=== PATIENT | female | born 1945 | race Caucasian/White ===

== ENCOUNTER 2021-04-15 12:44 | Outpatient (REF) | payer MEDICARE, SELFPAY ==
[2021-04-15 14:23] LABS: Hematocrit 38.5 % (37-47); Mean Corpuscular HGB Conc 31.2 g/dl (31.0-35.0); Mean Corpuscular Hemoglobin 28.9 pg (27.0-33.0); Mean Corpuscular Volume 92.8 fL (80-98); Mean Platelet Volume 10.1 fL (9.4-12.3); Platelet Count 240 X10*3/uL (160-400); Red Blood Count 4.15 X10*6/uL (4.20-5.50); Red Cell Distribution Width 13.4 % (11.0-16.0); White Blood Count 8.3 X10*3/uL (4.8-10.8)
[2021-04-15 14:32] LABS: Alanine Aminotransferase 8 U/L (0-31); Albumin Level 4.3 g/dL (3.5-5.0); Alkaline Phosphatase 60 U/L (39-117); Anion Gap 13 (12-20); Aspartate Amino Transferase 15 U/L (5-31); Bilirubin Total 0.4 mg/dL (0.0-1.0); Blood Urea Nitrogen 11 mg/dL (9-16); Calcium 10.1 mg/dL (8.4-10.2); Carbon Dioxide 30 mmol/L (22-29); Chloride 103 mmol/L (96-108); Cholesterol 177 mg/dL; Estimated Glomerular Filt Rate > 60; Glucose Fasting 92 mg/dL (60-99); HDL Cholesterol 55 mg/dL; LDL Cholesterol Calculated 92 mg/dl; Potassium 4.3 mmol/L (3.3-5.1); Sodium 142 mmol/L (135-145); Total Protein 6.5 g/dL (6.5-8.0); Triglycerides 153 mg/dL
== END 2021-04-15 12:45 | disposition home or self-care (01) ==
LOC: HO.HMGCLDS 12:44
PROVIDERS: PCP Internal Medicine; Visit Provider Internal Medicine
DX: Z00.00 Encounter for general adult medical examination without abnormal findings (principal); E78.5 Hyperlipidemia, unspecified; J45.909 Unspecified asthma, uncomplicated
CPT/HCPCS: 36415; 80053; 80061; 85027

== ENCOUNTER → 2021-09-01 14:53 | Outpatient (BNVA) | payer MEDICARE, SELFPAY | PROVIDERS: PCP Internal Medicine; Visit Provider Hospitalist | DX: J44.9 Chronic obstructive pulmonary disease, unspecified (principal); R91.1 Solitary pulmonary nodule; Z85.118 Personal history of other malignant neoplasm of bronchus and lung | CPT/HCPCS: 99202 ==

== ENCOUNTER 2021-09-15 13:04 | Outpatient (REF) | payer MEDICARE, SELFPAY ==
--- NOTE | ~2021-09-15 | CT_ITS ---
EXAMINATION: CT CHEST WITHOUT CONTRAST CLINICAL INFORMATION: Personal history of malignant neoplasm of the lung. COMPARISON: 08/11/2018 TECHNIQUE: Multidetector volumetric CT imaging of the chest was done. Axial MIP volume rendering provided. Sagittal and coronal reformatted images were obtained. This CT examination was performed using dose optimization techniques as appropriate, variously including the following: *Automated exposure control *Adjustment of mA and/or kV according to patient size (this includes techniques or standardized protocols for targeted exams where dose is matched to indication/reason for exam; i.e. extremities or head) *Use of iterative reconstruction technique DLP: 151 mGy-cm FINDINGS: LUNGS: The central airways are patent. Status post partial left upper lobe resection. There is moderate centrilobular emphysema. Area of ill-defined groundglass opacification in the perihilar right upper lobe noted. This is increased in density when compared to previous. This area measures up to 3 cm. Additional nodules are again seen. 1. 0.3 cm pleural-based lateral right apical nodule, series 7 image 160. This is unchanged. 2. Somewhat broad-based anterior pleural plaque in the right upper lobe on series 7 image 240 is unchanged. 3. Anterior pleural-based right upper lobe nodularity near the minor fissure on series 7 image 386 is unchanged. MEDIASTINUM: Normal heart size. Coronary artery calcifications are present. No pericardial effusion. No mediastinal lymphadenopathy. PLEURA: There is no pleural effusion. No pleural mass or thickening. No pneumothorax. AXILLA: No lymphadenopathy. UPPER ABDOMEN: Unremarkable. OSSEOUS STRUCTURES: No acute or suspicious osseous abnormality. Mild degenerative changes of the spine. Spinal stimulator wiring extends to the T10 level. CT/CT chest wo con IMPRESSION: Moderate emphysema. Increasing area of groundglass opacification in the perihilar right upper lobe since 2018. This is increased in prominence and density from then. Further evaluation should be considered. Postsurgical changes of the left lung. Multiple additional pulmonary nodules are unchanged. Fleischner guidelines were followed.
== END 2021-09-15 13:05 | disposition home or self-care (01) ==
LOC: HO.CT 13:04
PROVIDERS: PCP Internal Medicine; Visit Provider Hospitalist
DX: Z85.118 Personal history of other malignant neoplasm of bronchus and lung (principal); R91.1 Solitary pulmonary nodule; J44.9 Chronic obstructive pulmonary disease, unspecified
CPT/HCPCS: 71250

== ENCOUNTER 2021-09-19 15:03 | Outpatient (REF) | payer MEDICARE, SELFPAY ==
--- NOTE | 2021-09-19 17:21 | PFT_ITS ---
FLOWS: FEV1 50% of predicted at 0.92 L. FVC 68% of predicted at 1.68 L. FEV1 to FVC ratio of 0.55. Bronchodilator testing was not performed as patient had DuoNebs approximately 2 hours before testing. LUNG VOLUMES: Total lung capacity 91% of predicted at 4.22 L. Residual volume 108% of predicted at 2.33 L. Slow vital capacity 76% of predicted at 1.89 L. Expiratory reserve volume 95% predicted at 0.46 L. Diffusion capacity is severely decreased, diffusion capacity adjust to being moderately decreased after correction for alveolar ventilation. In comparison to pulmonary function test from March of 2015, FEV1 has decreased by 0.75 L; FVC has decreased by 0.85 L; total lung capacity has decreased by 1.08 L; residual volume has decreased by 0.59 L; slow vital capacity has decreased by 0.71 L; expiratory reserve volume has decreased by 0.55 L; diffusion capacity has decreased by 4.59 mL/minute/mmHg. IMPRESSION: Severe obstructive ventilatory defect. Bronchodilator testing was not performed as patient has had DuoNebs 2 hours prior to the testing. Decreased diffusion capacity suggests emphysema. Antonio Hernandez MD AP/MODL / [id number]
== END 2021-09-19 15:04 | disposition home or self-care (01) ==
LOC: HO.RESP 15:03
PROVIDERS: PCP Internal Medicine; Visit Provider Hospitalist
DX: J44.9 Chronic obstructive pulmonary disease, unspecified (principal); R91.1 Solitary pulmonary nodule; Z85.118 Personal history of other malignant neoplasm of bronchus and lung
CPT/HCPCS: 94010; 94727; 94729

== ENCOUNTER → 2021-10-13 14:57 | Outpatient (BNVA) | payer MEDICARE, SELFPAY | PROVIDERS: PCP Internal Medicine; Visit Provider Hospitalist | DX: J44.9 Chronic obstructive pulmonary disease, unspecified (principal); R91.1 Solitary pulmonary nodule; Z85.118 Personal history of other malignant neoplasm of bronchus and lung | CPT/HCPCS: 99212 ==

== ENCOUNTER 2021-10-28 11:05 | Outpatient (REF) | payer MEDICARE, SELFPAY ==
--- NOTE | ~2021-10-28 | PE_ITS ---
EXAMINATION: Fluorine-18 FDG PET/CT Scan CLINICAL INDICATION: Initial treatment management. Solitary pulmonary nodule, history of lung cancer 2016. PROCEDURE: 67 minutes following the intravenous administration of 14.3 mCi of fluorine 18 FDG, images from the base of the skull to the mid thighs were obtained using a combined PET/CT scanner with CT scan based attenuation correction. No oral contrast was administered. No intravenous contrast was administered. Transverse, coronal, sagittal, and volume reconstruction projections were obtained. The patient's blood glucose as determined by a finger stick, was 90 mg/dl immediately prior to injection. Total CT exam dose-length product 487.05 mGy-cm * These CT images were obtained using dose optimization techniques as appropriate, variously including the following: Automated exposure control * Adjustment of mA and/or kV according to patient size (this includes techniques or standardized protocols for targeted exams where dose is matched to indication/reason for exam; i.e. extremities or head) * Use of iterative reconstruction technique COMPARISON: The prior PET CT scan dated 07/30/2017 performed at [facility] is available for comparison. CT scan of the chest dated 09/15/2021 is also available for comparison. FINDINGS: (Slice numbers described in this report are numbered superiorly to inferiorly with slice #1 in the head) NECK AND VISUALIZED HEAD: No foci of abnormal FDG activity are noted. The distribution of FDG activity is physiological. There is no cervical lymphadenopathy. THORAX: Postsurgical changes from a partial left upper lobectomy are noted. An intensely FDG avid left upper lobe pulmonary nodule present on the prior 07/30/2017 PET/CT scan there is no longer present. There is a groundglass opacity in the right upper lobe that shows very weak FDG activity which is just barely above the background pulmonary activity showing SUVmax 0.6, slice 74/223. On the recent diagnostic CT scan dated 09/15/2021 this poorly marginated groundglass opacity in this measured up to 3 cm, but it appears smaller on the current study, the best delineated region of this measuring now about 1.2 x 0.8 cm, but without sharp margins. Several additional subcentimeter nodules visualized on 09/15/2021 are not as well delineated on these nondiagnostic images. The include a pleural-based 0.3 cm anterolateral right upper lobe nodule, slice 60/223 and a 0.3 cm anterior pleural-based right middle lobe nodule, slice 93/223. Both of these are much too small to be characterized on the FDG PET images. No additional pulmonary nodules are visualized. There are no additional foci of increased FDG activity in the chest. There is no mediastinal, supraclavicular, or axillary lymphadenopathy. There is no pleural or pericardial fluid, or pneumothorax. ABDOMEN AND PELVIS: There are no foci of abnormal FDG activity in the abdomen or pelvis. The liver, gallbladder, spleen comment kidneys, and adrenal glands are unremarkable. The pancreas is mildly atrophic but otherwise unremarkable. There is mild diffuse FDG activity throughout the gastrointestinal tract without a suspicious focal component. There is diverticulosis without evidence of diverticulitis. The hollow viscera are otherwise unremarkable. The pelvic organs are unremarkable. There is no retroperitoneal, mesenteric, pelvic or inguinal lymphadenopathy. MUSCULOSKELETAL: There are no foci of abnormal FDG activity in the osseous structures. Spinal stimulator wiring is visualized extending from the upper lumbar to lower thoracic levels. There is no associated abnormal FDG activity. There are mild degenerative changes in the spine and both hips. There are no suspicious sclerotic or lytic lesions present. VASCULAR: Diffuse vascular calcifications including some coronary calcifications are noted. PET/PET CT fusion skull to thigh IMPRESSION: 1. An ill-defined groundglass opacity in the right upper lobe shows very weak FDG activity. These findings are more suggestive of an inflammatory process than malignancy. Follow-up with diagnostic CT imaging in approximately 3 months to determine progression or resolution of this finding is recommended. 2. Several stable subcentimeter pulmonary ory nodules are not significantly changed from 09/15/2021 and are much too small to be characterized on the FDG PET images. Follow-up of these also with diagnostic CT imaging is recommended. 3. No additional abnormalities suspicious for metastatic or other malignant lesions are noted. 4. Vascular calcifications including some coronary calcifications.
== END 2021-10-28 11:06 | disposition home or self-care (01) ==
LOC: HO.PET 11:05
PROVIDERS: Visit Provider Hospitalist
DX: Z13.89 Encounter for screening for other disorder (principal)

== ENCOUNTER → 2021-12-09 12:52 | Outpatient (BNVA) | payer MEDICARE, SELFPAY | PROVIDERS: PCP Internal Medicine; Visit Provider Hospitalist | DX: J44.9 Chronic obstructive pulmonary disease, unspecified (principal); R91.1 Solitary pulmonary nodule; Z85.118 Personal history of other malignant neoplasm of bronchus and lung | CPT/HCPCS: 99212 ==

== ENCOUNTER 2022-03-27 13:29 | Outpatient (REF) | payer MEDICARE, SELFPAY ==
[2022-03-27 15:55] LABS: Alanine Aminotransferase 10 U/L (0-31); Anion Gap 14 (12-20); Aspartate Amino Transferase 18 U/L (5-31); Blood Urea Nitrogen 11 mg/dL (9-16); Calcium 9.6 mg/dL (8.4-10.2); Carbon Dioxide 29 mmol/L (22-29); Chloride 103 mmol/L (96-108); Cholesterol 189 mg/dL; Estimated Glomerular Filt Rate > 60; Glucose Fasting 90 mg/dL (60-99); HDL Cholesterol 54 mg/dL; LDL Cholesterol Calculated 92 mg/dl; Sodium 142 mmol/L (135-145); Triglycerides 216 mg/dL
[2022-03-27 16:17] LABS: TSH reflex Free T4 0.24 uIU/mL (0.32-4.0); Vitamin D 25-OH Total 51.7 ng/mL (>30)
[2022-03-27 16:53] LABS: Free T4 (Free Thyroxine) 0.82 ng/dL (0.71-1.85)
[2022-03-30 16:21] LABS: Thyroid Peroxidase Antibodies 1 IU/mL (<9)
== END 2022-03-27 13:30 | disposition home or self-care (01) ==
LOC: HO.HMGCLDS 13:29
PROVIDERS: Visit Provider Internal Medicine
DX: E06.3 Autoimmune thyroiditis (principal); E78.5 Hyperlipidemia, unspecified; I10 Essential (primary) hypertension; Z78.0 Asymptomatic menopausal state; M85.80 Other specified disorders of bone density and structure, unspecified site
CPT/HCPCS: 36415; 80048; 80061; 82306; 84439; 84443; 84450; 84460; 86376

== ENCOUNTER 2022-04-27 13:05 | Outpatient (REF) | payer MEDICARE, SELFPAY ==
--- NOTE | ~2022-04-27 | CT_ITS ---
EXAMINATION: CT CHEST WITHOUT CONTRAST CLINICAL INFORMATION: Lung carcinoma 2017. COMPARISON: CT PET 10/28/2021. CT chest 09/15/2021. TECHNIQUE: Multidetector volumetric CT imaging of the chest was done. Axial MIP volume rendering provided. Sagittal and coronal reformatted images were obtained. This CT examination was performed using dose optimization techniques as appropriate, variously including the following: *Automated exposure control *Adjustment of mA and/or kV according to patient size (this includes techniques or standardized protocols for targeted exams where dose is matched to indication/reason for exam; i.e. 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 LUNGS: There is previous left upper lobectomy changes with loss of left lung volume. There is expansion of left lower lobe. No acute pneumonic process seen. There is; however, dependent or compressive atelectasis along the left lower lobe lateral segment. Minimal scarring or atelectasis seen in the lingula. Again visualized is a groundglass attenuation in the right upper lobe measuring 3 cm on axial image 250/7. There is a 3 mm calcification in the left major fissure, stable pleural-based nodularity in the right upper lobe as described previously measuring 3 mm is stable. There is no additional pleural-based nodularity seen. No parenchymal nodules visualized. MEDIASTINUM: Thyroid lobes are symmetric and normal. The central trachea and the bronchi widely patent. The heart size and the great vessels are normal caliber. No abnormal size mediastinal or hilar lymph nodes seen. There are trace coronary artery calcifications present. No pericardial effusion seen. There is mediastinal shift to the left. PLEURA: There is no pleural effusion. No pleural mass or thickening. AXILLA: No lymphadenopathy. UPPER ABDOMEN: Visualized liver, spleen, pancreas and bilateral adrenal glands unremarkable. OSSEOUS STRUCTURES: No lytic or sclerotic process seen. There are electrodes within the posterior epidural space of the spinal canal. CT/CT chest wo con IMPRESSION: 1. Left upper lobectomy changes with minimal atelectatic changes left lower lobe and lingular segments. There is mediastinal shift to the left. 2. Right upper lobe groundglass density stable. 3. Pleural-based nodules are barely visible with no new pleural-based or parenchymal nodules seen at this time. 4. Recommend continued follow-up. Fleischner guidelines were followed.
== END 2022-04-27 13:06 | disposition home or self-care (01) ==
LOC: HO.CT 13:05
PROVIDERS: PCP Internal Medicine; Visit Provider Hospitalist
DX: R91.1 Solitary pulmonary nodule (principal); Z85.118 Personal history of other malignant neoplasm of bronchus and lung
CPT/HCPCS: 71250

== ENCOUNTER → 2022-06-16 13:18 | Outpatient (BNVA) | payer MEDICARE, SELFPAY | PROVIDERS: PCP Internal Medicine; Visit Provider Hospitalist | DX: Z23 Encounter for immunization (principal); J44.9 Chronic obstructive pulmonary disease, unspecified; R91.1 Solitary pulmonary nodule; Z85.118 Personal history of other malignant neoplasm of bronchus and lung | CPT/HCPCS: 90471; 90732; 99212 ==

== ENCOUNTER 2022-12-11 13:06 | Outpatient (REF) | payer MEDICARE, OTHER, SELFPAY ==
--- NOTE | ~2022-12-11 | CT_ITS ---
EXAMINATION: CT CHEST WITHOUT CONTRAST CLINICAL INFORMATION: Solitary pulmonary nodule. COMPARISON: CT chest without contrast 04/27/2022. TECHNIQUE: Multidetector volumetric CT imaging of the chest was done. Axial MIP volume rendering provided. Sagittal and coronal reformatted images were obtained. This CT examination was performed using dose optimization techniques as appropriate, variously including the following: *Automated exposure control *Adjustment of mA and/or kV according to patient size (this includes techniques or standardized protocols for targeted exams where dose is matched to indication/reason for exam; i.e. 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 LUNGS: There are left upper lobectomy changes with loss of left lung volume. Again visualized is patchy ground-glass attenuation right upper lobe measuring at least 3 cm similar to previous study. The rest of the lungs are well-expanded with subpleural atelectatic changes or scarring left lower lobe and right middle lobe. A 3 mm calcification left major fissure is stable. No pulmonary nodule or mass seen. MEDIASTINUM: The thyroid lobes are symmetrical and normal. The central trachea and the bronchi are widely patent. Heart size and the great vessels are normal caliber. No abnormal size mediastinal or hilar lymph nodes seen. There is no pericardial effusion. CORONARY ARTERY CALCIFICATION: Mild coronary artery calcifications are present. PLEURA: There is no pleural effusion. No pleural mass or thickening. AXILLA: No lymphadenopathy. UPPER ABDOMEN: Visualized liver, spleen, pancreas and bilateral adrenal glands are unremarkable. OSSEOUS STRUCTURES: There is exaggerated thoracic kyphosis. No aggressive lytic or sclerotic process seen. There is a lower thoracic epidural neurostimulator. CT/CT chest wo IV con IMPRESSION: 1. Left upper lobectomy changes with loss of left lung volume. 2. Right upper lobe ground-glass attenuation is stable. 3. No new pulmonary nodule or mass seen. 4. No abnormal mediastinal or axillary lymph nodes seen. Fleischner guidelines were followed.
== END 2022-12-11 13:07 | disposition home or self-care (01) ==
LOC: HO.CT 13:06
PROVIDERS: PCP Internal Medicine; Visit Provider Hospitalist
DX: R91.1 Solitary pulmonary nodule (principal)
CPT/HCPCS: 71250

== ENCOUNTER → 2022-12-14 12:51 | Outpatient (BNVA) | payer MEDICARE, SELFPAY | PROVIDERS: PCP Internal Medicine; Visit Provider Hospitalist | DX: J44.9 Chronic obstructive pulmonary disease, unspecified (principal); R91.1 Solitary pulmonary nodule; Z85.118 Personal history of other malignant neoplasm of bronchus and lung | CPT/HCPCS: 99212 ==

== ENCOUNTER 2023-05-13 11:22 | Outpatient (REF) | payer MEDICARE, SELFPAY ==
[2023-05-13 13:13] LABS: MANUAL DIFF FLAG NO
[2023-05-13 13:47] LABS: Basophils Absolute Auto 0.1 X10*3/uL (0.0-0.2); Basophils Percent Auto 0.6 % (0-2); Eosinophils Absolute Auto 0.2 X10*3/uL (0.0-0.4); Eosinophils Percent Auto 1.7 % (0-4); Hematocrit 38.5 % (37.0-47.0); Imm Gran Abs Auto 0.04 X10*3/uL (0.00-0.03); Imm Gran Pct Auto 0.5 % (0.0-0.4); Lymphocytes Absolute Auto 1.9 X10*3/uL (1.2-4.9); Lymphocytes Percent Auto 21.9 % (20-40); Mean Corpuscular HGB Conc 31.2 g/dl (31.0-35.0); Mean Corpuscular Hemoglobin 28.2 pg (27.0-33.0); Mean Corpuscular Volume 90.6 fL (80.0-98.0); Mean Platelet Volume 10.6 fL (9.4-12.3); Monocytes Absolute Auto 0.5 X10*3/uL (0.1-1.2); Monocytes Percent Auto 6.1 % (2-11); Neutrophils Percent Auto 69.2 % (45-73); Platelet Count 272 X10*3/uL (160-400); Red Blood Count 4.25 X10*6/uL (4.20-5.50); Red Cell Distribution Width 14.1 % (11.0-16.0); White Blood Count 8.6 X10*3/uL (4.8-10.8)
[2023-05-13 14:28] LABS: Alanine Aminotransferase 11 U/L (0-31); Albumin Level 4.2 g/dL (3.5-5.0); Alkaline Phosphatase 69 U/L (39-117); Anion Gap 15 (12-20); Aspartate Amino Transferase 16 U/L (5-31); Bilirubin Total 0.3 mg/dL (0.0-1.0); Blood Urea Nitrogen 9 mg/dL (9-16); Carbon Dioxide 28 mmol/L (22-29); Chloride 105 mmol/L (96-108); Cholesterol 157 mg/dL; Estimated Glomerular Filt Rate > 60; Glucose Fasting 105 mg/dL (60-99); HDL Cholesterol 55 mg/dL; LDL Cholesterol Calculated 75 mg/dl; Potassium 4.2 mmol/L (3.3-5.1); Sodium 144 mmol/L (135-145); Total Protein 6.9 g/dL (6.5-8.0); Triglycerides 139 mg/dL
[2023-05-13 14:33] LABS: TSH reflex Free T4 0.53 uIU/mL (0.32-4.0); Vitamin D 25-OH Total 92.4 ng/mL (>30)
== END 2023-05-13 11:23 | disposition home or self-care (01) ==
LOC: HO.HMGCLDS 11:22
PROVIDERS: PCP Internal Medicine; Visit Provider Internal Medicine
DX: D12.6 Benign neoplasm of colon, unspecified (principal); E06.3 Autoimmune thyroiditis; E78.5 Hyperlipidemia, unspecified; F51.04 Psychophysiologic insomnia; M16.0 Bilateral primary osteoarthritis of hip; M79.7 Fibromyalgia; M85.80 Other specified disorders of bone density and structure, unspecified site
CPT/HCPCS: 36415; 80053; 80061; 82306; 84443; 85025

== ENCOUNTER 2023-05-14 11:58 | Outpatient (AMB) | payer MEDICARE, SELFPAY ==
--- NOTE | 2023-05-14 12:15 | A.OFFPC_ITS ---
Vital Signs 05/14/23 12:18 Height 5 ft 1 in Weight 158 lb BMI 29.9 BP 140/80 H Blood Pressure Location Lt brachial Position Sitting Pulse 82 Pulse Source Pulse Oximeter Pulse Oximetry (%) 93 Oxygen Delivery Method Nasal Cannula Intake Visit Reasons: Followup medication Intake Note: Patient here for medication follow up. Allergies aspirin [ASPIRIN] Allergy (Intermediate, Verified 05/14/23 12:38) HEADACHE Neuromuscular Blockers, Steroidal [STEROIDAL NEUROMUSCULAR BLOCKERS] Allergy (Intermediate, Verified 05/14/23 12:38) AGITATION,HEADACHE,GI UPSET ibuprofen [From ADVIL] Adverse Reaction (Intermediate, Verified 05/14/23 12:38) STOMACH UPSET steroids Allergy (Severe, Uncoded 05/14/23 12:38) Aggressive FLONASE Allergy (Intermediate, Uncoded 05/14/23 12:38) intolerance Medication List - Last Reconciled 05/14/23 by Loyda Yuen MD albuterol sulfate 90 mcg/actuation 2 puffs inhalation Q6H PRN alendronate 70 mg PO QWEEK ascorbate calcium (vitamin C) 500 mg PO DAILY carisoprodol 350 mg PO TID PRN cholecalciferol (vitamin D3) 50 mcg PO DAILY coenzyme Q10 (CoQ-10) 100 mg PO DAILY gabapentin 0 mg PO hydrocodone-acetaminophen 7.5-325 mg 1 tab PO QID PRN ipratropium-albuterol 0.5 mg-3 mg(2.5 mg base)/3 mL 3 mL inhalation Q6H PRN 30 days nebulizers As directed Oxygen Home Use As directed pravastatin 80 mg PO DAILY trazodone 450 mg (3 x 150 mg) PO BEDTIME Tobacco use date assessed: 05/14/23 Fall risk assessment: No Falls in past year Last assessed Fall Risk: 05/14/23 Dental Screening Dental Screen Date: 05/14/23 Did you have a dental visit in the last 12 months?: No Did you have a dental problem in the last 6 months where you did not have access to dental care?: No Was dental information given to patient?: Patient declined HPI Followup medication HPI Details 77 year-old lady with history of lung cancer, , COPD followed by Pulmonary, has dyslipidemia, and 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 She had recent fasting labs done which showed lipids within normal limits, slightly elevated fasting glucose and TSH within normal limits. She has been feeling well, no new complaints at present time. [facility] Medical History (Updated 05/14/23 @ 12:57 by Loyda Yuen MD) Chronic insomnia COPD (chronic obstructive pulmonary disease) Fibromyalgia Karlie's thyroiditis History of lung cancer (~2016) Hyperlipidemia Impaired fasting glucose Osteoarthritis of both hips Osteopenia Personal history of nicotine dependence Pulmonary nodule Tubular adenoma of colon Surgical History History of back surgery (~2002) History of colonoscopy (~02/2014) History of left knee surgery History of lung surgery (~09/2017) Family History Father Bone cancer Mother AAA (abdominal aortic aneurysm) Daughter No problems noted. Son No problems noted. Social History Patient Tobacco Use Status: Former Tobacco user Tobacco use type: Cigarette Cigarette Packs Per Day: 1 Cigarettes Per Day: 20 Years Smoked: 20 e-Cigarette/Vaping Use: Never Used Second Hand Smoke Exposure: No Cognitive needs: No Hearing needs: No Vision needs: No Questionnaire Thrive Questionnaire Date Thrive assessed: 04/18/21 FELY-7 AMB Questionnaire FELY-7 Date FELY - 7 assessed: 03/27/22 Source: Developed by Drs. Steve Garcia, Donna Jacobs, Sulaiman Reynolds and colleagues, with an educational kostas from [employer]. Review of Systems Const Denies fatigue, Denies frequent falls, Denies headache(s), Denies night sweats and Denies weight loss ENT Denies dizziness and Denies headache(s) Card Denies chest pain and Reports dyspnea on exertion Resp Denies chest congestion, Reports dyspnea on exertion and Denies wheezing GI Reports no additional complaints Reports no additional complaints Musc Denies no additional complaints, Denies abnormal gait and Denies tingling Neuro Denies abnormal gait, Denies behavioral changes, Denies dizziness, Denies frequent falls, Denies headache(s), Denies restless legs, Denies Sensory deficit (Neuro) and Denies tingling Psych Denies no additional complaints and Denies behavioral changes Endo Denies fatigue Chris/Lymph Denies easy bleeding and Denies lymphadenopathy Aller/Immun Denies wheezing Physical exam (Primary Care) Vital Signs: Last Vital Signs Pulse 82 05/14/23 12:18 BP 140/80 H 05/14/23 12:18 Pulse Ox 93 05/14/23 12:18 Oxygen Delivery Method Nasal Cannula 05/14/23 12:18 BMI result Body Mass Index 29.9 Tobacco/Smoking Status: Tobacco use Status Tobacco use date assessed 05/14/23 05/14/23 12:23 Patient Tobacco Use Status Former Tobacco user 05/14/23 12:18 Tobacco use type Cigarette 05/14/23 12:18 e-Cigarette/Vaping Use Never Used 05/14/23 12:18 Thrive Assessment: Date of Thrive Assessment Date Thrive assessed 04/18/21 05/14/23 12:18 Const Orientation/consciousness: patient oriented x3 Eyes General: appearance normal, both eyes and all related structures Neck Other: Thyroid gland nonpalpable Neck: Yes full ROM, Yes no lymphadenopathy and Yes supple Resp Effort & Inspection: normal respiratory effort and able to speak in complete sentences Auscultation: diminished lung sounds Cardio Rate: regular rate Rhythm: regular rhythm Heart sounds: S1 normal heart sound present and S2 normal heart sound present GI Palpation (GI): Soft to palpation, nontender, no guarding and no masses Auscultation: normal bowel sounds Skin Lesions: no lesions Rashes: no rashes Neuro General: patient oriented x3, moves all extremities and no focal motor deficits Cranial nerves: Yes CN's II-XII intact bilaterally Sensory Exam: No Sensory deficit (Neuro) Extrem General: Yes full ROM, Yes no joint enlargement, Yes no pedal edema and Yes no calf tenderness Results Reviewed Results Reviewed: SPEC : [id number] RUTHANN: 05/13/23 STATUS: COMP REQ : [id number] RECD: 05/13/[address]: Loyda Yuen MD COMP: 05/13/23 ENTERED: 05/13/[address] [facility] [address]: ORDERED: CBC Auto Diff Test Result Flag Reference Site WBC 8.6 4.8-10.8 X10*3/uL RBC 4.25 4.20-5.50 X10*6/uL HGB 12.0 12.0-16.0 g/dl HCT 38.5 37.0-47.0 % MCV 90.6 80.0-98.0 fL MCH 28.2 27.0-33.0 pg MCHC 31.2 31.0-35.0 g/dl RDW 14.1 11.0-16.0 % PLT 272 160-400 X10*3/uL MPV 10.6 9.4-12.3 fL Neut Pct Auto 69.2 45-73 % ImGran Pct Auto 0.5 H 0.0-0.4 % Lymp Pct Auto 21.9 20-40 % Hardee Pct Auto 6.1 2-11 % Eos Pct Auto 1.7 0-4 % Baso Pct Auto 0.6 0-2 % NRBC Pct Auto 0.0 0.0-0.2 /100WBC ANC Neut Abs # 6.0 2.0-8.3 x10*3/uL ImGran Abs Auto 0.04 H 0.00-0.03 X10*3/uL Lymph Abs Auto 1.9 1.2-4.9 X10*3/uL Hardee Abs Auto 0.5 0.1-1.2 X10*3/uL Eos Abs Auto 0.2 0.0-0.4 X10*3/uL Baso Abs Auto 0.1 0.0-0.2 X10*3/uL NRBC Abs Auto 0.000 0.0-0.012 X10*3/uL RUN: 05/14/23 1237 PAGE 1 [facility] [address] [place] [id number] Police Worker: Leo Appiah M.D. Specimen Inquiry Name: Nancy Light Age/Sex: 77/F : 1945 Unit#: [id number] Attend Dr: Loyda Yuen MD Re05/13/23 Status: DEP REF Location: [facility] Disch: N SPEC : [id number] RUTHANN: 05/13/23 STATUS: COMP REQ : [id number] RECD: 05/13/23-[address]: Loyda Yuen MD COMP: 05/13/23-1433 ENTERED: 05/13/[address] [facility] [address]: ORDERED: CMP Fast, Lipid Panel, Vitamin D 25-OH, TSH Rflx Test Result Flag Reference Site Sodium 144 135-145 mmol/L Potassium 4.2 3.3-5.1 mmol/L CL 105 96-108 mmol/L CO2 28 22-29 mmol/L Gap 15 12-20 BUN 9 9-16 mg/dL Creat 0.72 0.5-1.4 mg/dL EGFR > 60 NOTE: For -Serbian individuals, multiply the result by 1.210. Chronic Kidney Disease: Estimated GFR < 60 mL/min/1.73m2 Severe Kidney Disease: Estimated GFR < 15 mL/min/1.73m2 FBS 105 H 60-99 mg/dL A fasting glucose from 100-125 mg/dl is considered impaired (pre-diabetes). CA 10.0 8.4-10.2 mg/dL Total Bili 0.3 0.0-1.0 mg/dL AST (GOT) 16 5-31 U/L ALT (GPT) 11 0-31 U/L Protein, Total 6.9 6.5-8.0 g/dL Alb 4.2 3.5-5.0 g/dL Triglyceride 139 mg/dL Desirable Triglyceride: less than 150 mg/dL Borderline High Triglyceride 150-199 mg/dL High Triglyceride: 200-499 mg/dL Very High Triglyceride: greater than or equal to 5OO mg/dL Chol 157 mg/dL Desirable Cholesterol: less than 200 mg/dL Borderline High Cholesterol: 200-239 mg/dL High Cholesterol: greater than 239 mg/dL LDL Calculated 75 mg/dl Desirable LDL: less than 100 mg/dL Near Optimal/Above Optimal LDL: 110-129 mg/dL Borderline High LDL: 130-159 mg/dL High LDL: 160-189 mg/dL Very High LDL: greater than or equal to 190 mg/dL HDL 55 mg/dL Desirable HDL: greater than 40 mg/dL Note: This HDL assay may give artificially low results in patients with liver disease. Alk Phos 69 39-117 U/L Vit D 25-OH Tot 92.4 >30 ng/mL Health Based Reference Values* < 20 ng/mL Deficient 20-30 ng/mL Insufficient > 30 ng/mL Sufficient *Mert DIAZ. N Engl J Med. 2007;357:266-280 Care must be taken in interpreting Vitamin D results from different laboratories and methodologies. Published data demonstrated that results from patients undergoing hemodialysis may show a negative bias when tested with various automated 25-OH vitamin D assays when compared to LC-MS/MS. When testing samples from patients whose predominant form of Vitamin D is Vitamin D2, such as patients receiving Vitamin D2 supplementation, results that are subtherapeutic should be confirmed with another method such as LC-MS/MS. TSH 0.53 0.32-4.0 uIU/mL Assessment and Plan Assessment & Plan (1) Hyperlipidemia: Code(s): E78.5 - Hyperlipidemia, unspecified Plan: Reviewed recent fasting lipid profile with patient with levels within normal limits . Continue with pravastatin 80 mg at bedtime , in addition to adherence to low-cholesterol diet and regular exercise, at least 30 minutes 3 to 4 times a week. Advised patient to make healthy food choices, eat more fruits, vegetables, whole grains, wild caught fish and low-fat dairy. Limit amount of meat and fried or fatty food products, as well as processed foods and fast foods. Follow-up scheduled with repeat fasting lipid panel in months. 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 Stone Code(s): E06.3 - Autoimmune thyroiditis Plan: Thyroid levels within normal limits, currently asymptomatic. Will monitor (3) Osteopenia: Code(s): M85.80 - Other specified disorders of bone density and structure, unspecified site Plan: Continue with alendronate and cholecalciferol 50 mcg once a day Orders: Orders Alanine Aminotransferase 09/10/23 E06.3 - Autoimmune thyroiditis, E78.5 - Hyperlipidemia, unspecified, M85.80 - Other specified disorders of bone density and structure, unspecified site, R73.01 - Impaired fasting glucose Aspartate Amino Transferase 09/10/23 E06.3 - Autoimmune thyroiditis, E78.5 - Hyperlipidemia, unspecified, M85.80 - Other specified disorders of bone density and structure, unspecified site, R73.01 - Impaired fasting glucose Basic Metabolic Panel Fasting 09/10/23 E06.3 - Autoimmune thyroiditis, E78.5 - Hyperlipidemia, unspecified, M85.80 - Other specified disorders of bone density and structure, unspecified site, R73.01 - Impaired fasting glucose Lipid Panel 09/10/23 E06.3 - Autoimmune thyroiditis, E78.5 - Hyperlipidemia, unspecified, M85.80 - Other specified disorders of bone density and structure, unspecified site, R73.01 - Impaired fasting glucose Vitamin D 25-OH Total 09/10/23 E06.3 - Autoimmune thyroiditis, E78.5 - Hyperlipidemia, unspecified, M85.80 - Other specified disorders of bone density and structure, unspecified site, R73.01 - Impaired fasting glucose Free T4 (Free Thyroxine) 09/10/23 E03.9 - Hypothyroidism, unspecified, E06.3 - Autoimmune thyroiditis, E78.5 - Hyperlipidemia, unspecified, M85.80 - Other specified disorders of bone density and structure, unspecified site, R73.01 - Impaired fasting glucose Thyroid Stimulating Hormone 09/10/23 E06.3 - Autoimmune thyroiditis, E78.5 - Hyperlipidemia, unspecified, M85.80 - Other specified disorders of bone density and structure, unspecified site, R73.01 - Impaired fasting glucose Coding Level of Care Code Est Pt Level 3 (65556) Diagnoses Hyperlipidemia E78.5 Karlie's thyroiditis E06.3 Osteopenia M85.80
[2023-05-14 12:18] VITALS: BP 140/80; PULSE 82; O2SAT 93; BMI 29.9
== END 2023-05-14 13:42 | disposition home or self-care (01) ==
PROVIDERS: PCP Internal Medicine; Visit Provider Internal Medicine
DX: E78.5 Hyperlipidemia, unspecified (principal); E06.3 Autoimmune thyroiditis; M85.80 Other specified disorders of bone density and structure, unspecified site
CPT/HCPCS: 99213

== ENCOUNTER 2023-06-17 13:39 | Outpatient (AMB) | payer MEDICARE, SELFPAY ==
[2023-06-17 13:51] VITALS: PULSE 82; O2SAT 93; BMI 29.3
--- NOTE | 2023-06-17 13:51 | MHC.OFFVIS ---
Intake Vital Signs 06/17/23 13:51 Height 5 ft 1 in Weight 155 lb BMI 29.3 Pulse 82 Pulse Source Pulse Oximeter Pulse Oximetry (%) 93 Oxygen Delivery Method Room Air Comment 2 Liters Pulse([employer]) Intake Visit Reasons: copd Certified Nurse Operating Room Required: No Allergies aspirin [ASPIRIN] Allergy (Intermediate, Verified 06/17/23 13:52) HEADACHE Neuromuscular Blockers, Steroidal [STEROIDAL NEUROMUSCULAR BLOCKERS] Allergy (Intermediate, Verified 06/17/23 13:52) AGITATION,HEADACHE,GI UPSET ibuprofen [From ADVIL] Adverse Reaction (Intermediate, Verified 06/17/23 13:52) STOMACH UPSET steroids Allergy (Severe, Uncoded 06/17/23 13:52) Aggressive FLONASE Allergy (Intermediate, Uncoded 06/17/23 13:52) intolerance HPI HPI Comments History of Present Illness Details The patient is a 78-year-old woman with a known history of tobacco dependency in the past, COPD and history of lung cancer. She is status post lobectomy several years back with curative intent. Subsequently after that she did follow-up with Oncology. She did have a CT scan of the chest back in 2018 demonstrating stable postsurgical changes on the left-hand side. The patient did have a couple pulmonary nodules. The patient has had a CT scan since then. In addition to that she does have dyspnea on exertion. The patient does use oxygen supplementation usually between 2.5-3 L. She does respond better to the continues oxygen. Recently the family about a portable oxygen concentrator that can provide continuously to flow. Although the battery only lasts about an hour. The patient has not had any pulmonary function studies in a couple years. In regards of her respiratory medications they have been very expensive for her. She typically uses a DuoNeb between 2 to 3 times a day with good effect. At this point I believe this is enough. She does not have any significant wheezing or chest congestion to suggest the need for inhaled cortical steroid therapy at this time. 10/13/2021 the patient is here for pulmonary follow-up visit. Overall the patient has been doing well. She continues using her oxygen with good effect. In addition to that she has continued her respiratory therapy. She did undergo a repeat CT scan of the chest that we personally reviewed together. We were able to compared to the CT scan that she had from 2018. It appears that she has a ground-glass nodular density which is demonstrating interval worsening size when compared to 2018. with a history of lung cancer will be reasonable to further address this nodular density with a PET scan. In addition to that the patient did undergo pulmonary function studies which we personally reviewed demonstrating moderate to severe COPD. The patient does have a severe diffusion impairment which correlates with her oxygen requirements. Based on her decreased DLCO the patient may not be a surgical candidate. We consider bronchoscopy to address this parenchymal abnormality is found to be abnormal on the PET scan. 12/09/2021 the patient is here for a pulmonary follow-up visit. Overall the patient has been doing well. She does continue to have dyspnea on exertion. [id number] severity. The oxygen has been helpful. She cannot afford inhalers per se. However, the nebulizer therapy has been very effective in beneficial. Currently she is on DuoNeb. Will consider budesonide in the future. Right now she is not having any significant productive cough or wheezing so we can hold off on the steroid component. In the meantime we did review her recent PET scan which demonstrated no significant FDG activity in the larger right-sided subsolid nodular density. She does have a history of cancer. Although the PET scan is reassuring she does need to have follow-up CT scan in 6 months. Otherwise patient is without any other complaints. I did encourage her to start pulmonary rehab online. I did give her information in order to do so. Will follow-up in 6 months or sooner if any new issues arise. 06/16/2022 the patient is here for a pulmonary follow-up visit. Overall she is doing well she continues use her nebulized therapy. This has been effective. She does not have any inhalers specially because they have been very expensive for her. We did talk about different alternatives including using a repeat card and also trying generic inhalers that now are available which be lower in [place]. I do believe that she will need at least a rescue inhaler to have with her when she leaves her home. Also, we can consider maintenance inhalers in the near future. We did discuss her last CT scan of the chest done in April 2022 demonstrating stable pulmonary nodules and postsurgical changes after having her lung cancer resected. Will plan to repeat the CT scan 6 months from now which be [address] scan to make sure that those nodular densities are not worse. She continues use oxygen continue sleep. When she is at home with the long cord she sometimes increases it to 3 L because she feels is not enough. 12/14/2022 the patient is here for pulmonary follow-up visit. Overall she is doing well. She is using the nebulized therapy. She is able to expectorate well in the morning. She does feel some heaviness specially when she walks. She does use the oxygen with good effect. She is using conserving device. The patient overall is doing well with the nebulized therapy. She did have a recent CT scan of the chest were personally reviewed and compared to her last CT scan from April 2022. The CT chest has not been officially read, but no significant changes on the GG nodular density. Will plan to repeat CT chest in 1 year if no other findings on her official CT chest read. 06/17/2023 the patient is here for pulmonary follow-up visit. Overall the patient is doing fairly well. She is using her respiratory medication. She is also using her oxygen. Her oxygen requirements have not changed. She also did get the Acapella valve. I did recommend she use it twice a day as good exercise physiology and good mucus clearance. She does not have any significant mucus at this time however. Her last CT scan was back in December 2022. The patient did have a nodular density. She has a history of lung cancer. She will return in 6 months to follow up her repeat CT scan in December 2023. If she has any issues prior to that she is to call the office for an earlier assessment. the patient is wondering about Trelegy inhaler. We did talk about the inhalers and potential cost. She will think about it. In the meantime I will send a prescription if so if she decides to use it she can started once daily. [facility] Medical History (Updated 05/14/23 @ 12:57 by Loyda Yuen MD) Impaired fasting glucose Osteopenia Personal history of nicotine dependence Pulmonary nodule History of lung cancer (~2016) Osteoarthritis of both hips Tubular adenoma of colon Fibromyalgia Chronic insomnia Karlie's thyroiditis COPD (chronic obstructive pulmonary disease) Hyperlipidemia Surgical History History of back surgery (~2002) History of colonoscopy (~02/2014) History of left knee surgery History of lung surgery (~09/2017) Family History Father Bone cancer Mother AAA (abdominal aortic aneurysm) Daughter No problems noted. Son No problems noted. Social History Patient Tobacco Use Status: Former Tobacco user Tobacco use type: Cigarette Cigarette Packs Per Day: 1 Cigarettes Per Day: 20 Years Smoked: 20 e-Cigarette/Vaping Use: Never Used Second Hand Smoke Exposure: No Cognitive needs: No Hearing needs: No Vision needs: No Review of Systems Const Denies fatigue, Denies frequent falls, Denies headache(s), Denies night sweats and Denies weight loss ENT Denies dizziness and Denies headache(s) Card Denies chest pain and Reports dyspnea on exertion Resp Denies chest congestion, Reports dyspnea on exertion and Denies wheezing GI Reports no additional complaints Reports no additional complaints Musc Denies no additional complaints, Denies abnormal gait and Denies tingling Neuro Denies abnormal gait, Denies behavioral changes, Denies dizziness, Denies frequent falls, Denies headache(s), Denies restless legs, Denies Sensory deficit (Neuro) and Denies tingling Psych Denies no additional complaints and Denies behavioral changes Endo Denies fatigue Chris/Lymph Denies easy bleeding and Denies lymphadenopathy Aller/Immun Denies wheezing Physical Exam Vital Signs: Last Vital Signs Pulse 82 06/17/23 13:51 Pulse Ox 93 06/17/23 13:51 Oxygen Delivery Method Room Air 06/17/23 13:51 BMI result Body Mass Index 29.3 Const General: alert Neck Neck: Yes normal visual inspection, Yes full ROM and Yes no lymphadenopathy Chest Chest palpation & inspection: normal inspection of the chest Resp Auscultation: diminished lung sounds Cardio Rate: regular rate Rhythm: regular rhythm Heart sounds: S1 normal heart sound present and S2 normal heart sound present GI Palpation (GI): Soft to palpation and nontender Auscultation: normal bowel sounds Skin General skin exam: rashes and/or lesions noted Neuro Sensory Exam: No Sensory deficit (Neuro) Assessment & Plan Assessment & Plan (1) COPD (chronic obstructive pulmonary disease): Comment: Severe Code(s): J44.9 - Chronic obstructive pulmonary disease, unspecified (2) History of lung cancer: Onset Date: ~2016 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) Code(s): Z85.118 - Personal history of other malignant neoplasm of bronchus and lung (3) Pulmonary nodule: Code(s): R91.1 - Solitary pulmonary nodule Plan Continue DuoNeb therapy 3 times a day STACIA as needed continue oxygen supplementation 2.5-[address] scan of the chest in 12/2023 consider pulmonary rehabilitation on line Request CPT for acapella valve follow-up in 6 months Medications: New RSV vac, preF A and preF B(PF) (Abrysvo) 0.5 mL IM ONCE 1 ea 0RF J44.9 - Chronic obstructive pulmonary disease, unspecified, R91.1 - Solitary pulmonary nodule, Z85.118 - Personal history of other malignant neoplasm of bronchus and lung RSV vac, preF A and preF B(PF) (Abrysvo) 0.5 mL IM ONCE 1 ea 0RF J44.9 - Chronic obstructive pulmonary disease, unspecified, R91.1 - Solitary pulmonary nodule, Z85.118 - Personal history of other malignant neoplasm of bronchus and lung Coding Level of Care Code Est Pt Level 4 (16841) Diagnoses COPD (chronic obstructive pulmonary disease) J44.9 History of lung cancer Z85.118 Pulmonary nodule R91.1 Time Spent (min) 17
== END 2023-06-17 14:28 | disposition home or self-care (01) ==
PROVIDERS: PCP Internal Medicine; Visit Provider Hospitalist
DX: J44.9 Chronic obstructive pulmonary disease, unspecified (principal); Z85.118 Personal history of other malignant neoplasm of bronchus and lung; R91.1 Solitary pulmonary nodule
CPT/HCPCS: 99214

== ENCOUNTER → 2023-06-17 13:39 | Outpatient (BNVA) | payer MEDICARE, SELFPAY | PROVIDERS: PCP Internal Medicine; Visit Provider Hospitalist | DX: J44.9 Chronic obstructive pulmonary disease, unspecified (principal); R91.1 Solitary pulmonary nodule; Z85.118 Personal history of other malignant neoplasm of bronchus and lung; Z87.891 Personal history of nicotine dependence; Z90.2 Acquired absence of lung [part of]; Z99.81 Dependence on supplemental oxygen | CPT/HCPCS: 99212 ==

== ENCOUNTER 2023-12-13 15:28 | Emergency (ER) | payer OTHER, MEDICARE, SELFPAY ==
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
[2023-12-13 15:44] VITALS: BP 150/95; PULSE 95; O2SAT 94; BMI 27.5
[2023-12-13 16:09] VITALS: BP 178/76; PULSE 86; RESP 16; TEMP 36.8; O2SAT 94
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
== END 2023-12-13 18:55 | disposition home or self-care (01) ==
PROVIDERS: Emergency Provider Emergency Medicine; PCP Internal Medicine
DX: S20.212A Contusion of left front wall of thorax, initial encounter (principal); V43.52XA Car driver injured in collision with other type car in traffic accident, initial encounter; Y93.9 Activity, unspecified; Y92.410 Unspecified street and highway as the place of occurrence of the external cause; Y99.9 Unspecified external cause status
CPT/HCPCS: 71046; 71100; 71120; 99283; 99284

== ENCOUNTER 2024-08-11 13:25 | Outpatient (REF) | payer MEDICARE, SELFPAY | END 2024-08-11 13:26 | disposition home or self-care (01) | LOC: HO.CT 13:25 | PROVIDERS: PCP Internal Medicine; Visit Provider Hospitalist | DX: R91.1 Solitary pulmonary nodule (principal) | CPT/HCPCS: 71250 ==

== ENCOUNTER 2024-08-24 10:51 | Outpatient (REF) | payer MEDICARE, SELFPAY ==
[2024-08-24 14:24] LABS: Estimated Average Glucose 111 mg/dL; Hemoglobin A1C 111.6016 umol/L; Hemoglobin A1c % 5.5 % (<6.0); Total Hemoglobin (HGBA1C) 3039.0975 umol/L
[2024-08-24 14:30] LABS: TSH reflex Free T4 0.49 uIU/mL (0.32-4.0); Vitamin D 25-OH Total 79.4 ng/mL (>30)
[2024-08-24 14:34] LABS: Anion Gap 12 (12-20)
[2024-08-24 14:39] LABS: Alanine Aminotransferase 13 U/L (0-31); Aspartate Amino Transferase 20 U/L (5-31); Blood Urea Nitrogen 10 mg/dL (9-16); Calcium 9.7 mg/dL (8.4-10.2); Carbon Dioxide 32 mmol/L (22-29); Chloride 102 mmol/L (96-108); Cholesterol 189 mg/dL (<200); Estimated Glomerular Filt Rate > 60; Glucose Fasting 101 mg/dL (60-99); HDL Cholesterol 75 mg/dL (>40); LDL Cholesterol Calculated 91 mg/dL (<100); Potassium 4.2 mmol/L (3.3-5.1); Sodium 142 mmol/L (135-145); Triglycerides 118 mg/dL (<150)
== END 2024-08-24 10:52 | disposition home or self-care (01) ==
LOC: HO.HMGCLDS 10:51
PROVIDERS: PCP Internal Medicine; Visit Provider Internal Medicine
DX: R73.01 Impaired fasting glucose (principal); E06.3 Autoimmune thyroiditis; E78.5 Hyperlipidemia, unspecified; M85.80 Other specified disorders of bone density and structure, unspecified site; F51.04 Psychophysiologic insomnia
CPT/HCPCS: 36415; 80048; 80061; 82306; 83036; 84439; 84443; 84450; 84460

== ENCOUNTER 2024-08-25 10:06 | Outpatient (AMB) | payer MEDICARE, SELFPAY ==
--- NOTE | 2024-08-25 10:02 | MHC.PC.OV ---
Intake Visit Reasons: f/u medication for trazodone [id number] Allergies aspirin [ASPIRIN] Allergy (Intermediate, Verified 08/25/24 10:16) HEADACHE Neuromuscular Blockers, Steroidal [STEROIDAL NEUROMUSCULAR BLOCKERS] Allergy (Intermediate, Verified 08/25/24 10:16) AGITATION,HEADACHE,GI UPSET ibuprofen [From ADVIL] Adverse Reaction (Intermediate, Verified 08/25/24 10:16) STOMACH UPSET steroids Allergy (Severe, Uncoded 08/25/24 10:16) Aggressive FLONASE Allergy (Intermediate, Uncoded 08/25/24 10:16) intolerance Medication List - Last Reconciled 08/25/24 by Loyda Yuen MD albuterol sulfate 90 mcg/actuation 2 puffs inhalation Q6H PRN alendronate 70 mg PO QWEEK ascorbate calcium (vitamin C) 500 mg PO DAILY carisoprodol 350 mg PO TID PRN cholecalciferol (vitamin D3) 50 mcg PO DAILY coenzyme Q10 (CoQ-10) 100 mg PO DAILY gabapentin 0 mg PO hydrocodone-acetaminophen 7.5-325 mg 1 tab PO QID PRN ipratropium-albuterol 0.5 mg-3 mg(2.5 mg base)/3 mL 3 mL inhalation Q6H 30 days nebulizers As directed Oxygen Home Use As directed pravastatin 80 mg PO DAILY trazodone 450 mg (3 x 150 mg) PO BEDTIME Tobacco use date assessed: 08/25/24 Fall risk assessment: No Falls in past year Last assessed Fall Risk: 08/25/24 Dental Screening Dental Screen Date: 08/25/24 Did you have a dental visit in the last 12 months?: No Did you have a dental problem in the last 6 months where you did not have access to dental care?: No Was dental information given to patient?: Patient declined HPI f/u medication for trazodone [id number] HPI Details 79-year-old lady with history of fibromyalgia, osteopenia, Karlie's thyroiditis, history of lung cancer with chronic insomnia, here today for follow-up and needing a refill on her trazodone. She has been seeing Dr. Nicole for several years now and states that he was the 1 who started her on trazodone . Has been tolerating the medication well, does not complain of any lightheadedness, no grogginess or drowsiness when taking the medication. [facility] Medical History Impaired fasting glucose Osteopenia Personal history of nicotine dependence Pulmonary nodule History of lung cancer (~2016) Osteoarthritis of both hips Tubular adenoma of colon Fibromyalgia Chronic insomnia Karlie's thyroiditis COPD (chronic obstructive pulmonary disease) Hyperlipidemia Surgical History History of lung surgery (~09/2017) History of colonoscopy (~02/2014) History of back surgery (~2002) History of left knee surgery Family History Father Bone cancer Mother AAA (abdominal aortic aneurysm) Daughter No problems noted. Son No problems noted. Social History Housing: Other Alcohol intake: former Patient Tobacco Use Status: Former Tobacco user Tobacco use type: Cigarette Cigarette Packs Per Day: 1 Cigarettes Per Day: 20 Years Smoked: 20 e-Cigarette/Vaping Use: Never Used Second Hand Smoke Exposure: No Current occupational status: retired Cognitive needs: No Hearing needs: No Vision needs: Yes Questionnaire PHQ-9 Over the last 2 weeks, how often have you been bothered by any of the following problems? 1. Little interest or pleasure in doing things: not at all 2. Feeling down, depressed, or hopeless: not at all 3. Trouble falling or staying asleep, or sleeping too much: not at all 4. Feeling tired or having little energy: not at all 5. Poor appetite or overeating: not at all 6. Feeling bad about yourself - or that you are a failure or have let yourself or your family down: not at all 7. Trouble concentrating on things, such as reading the newspaper or watching television: not at all 8. Moving or speaking so slowly that other people could have noticed. Or the opposite - being so fidgety or restless that you have been moving around a lot more than usual: not at all 9. Thoughts that you would be better off or of hurting yourself in some way: not at all Total score: 0 Depression Screening Interpretation: Negative Depression Screening Done: Yes [id number] - PHQ-9 Billing: Yes Source: Developed by Drs. Steve Garcia, Donna Jacobs, Sulaiman Reynolds and colleagues, with an educational kostas from [employer]. Thrive Questionnaire Date Thrive assessed: 08/25/24 I am a: Patient What is your living situation today?: I have a steady place to live Within the past 12 months, did the food you bought not last and you didn't have the money to get more?: Never true Within the past 12 months, did you worry whether your food would run out before you got money to buy more?: Never true Do you have trouble paying for medicines?: No Do you have trouble getting transportation to medical appointments?: No Do you have trouble paying your heating and electricity bill?: No Do you have trouble taking care of your child, family member or friend?: No Do you have trouble with day-to-day activities such as bathing, preparing meals, shopping, managing finances, etc.?: No Are you currently unemployed and looking for a job?: No Are you interested in more education?: No THRIVE Score: 0 AUDIT C Alcohol Use Questionnaire (AUDIT-C) 1. How often do you have a drink containing alcohol?: Never Total Score: 0 FELY-7 AMB Questionnaire FELY-7 Date FELY - 7 assessed: 08/25/24 Feeling nervous, anxious, or on edge: 0 = Not at all Not being able to stop or control worryin = Not at all Worrying too much about different things: 0 = Not at all Trouble relaxin = Not at all Being so restless that it is hard to sit still: 0 = Not at all Becoming easily annoyed or irritable: 0 = Not at all Feeling afraid as if something awful might happen: 0 = Not at all Total FELY-7 score (0-4 normal; 5-9 mild; 10-14 moderate; 15-21 severe): 0 Source: Developed by Drs. Steve Garcia, Donna Jacobs, Sulaiman Reynolds and colleagues, with an educational kostas from [employer]. Review of Systems Const Denies frequent falls and Denies headache(s) ENT Denies dizziness and Denies headache(s) Card Denies chest pain and Reports dyspnea on exertion Resp Denies chest congestion and Reports dyspnea on exertion GI Reports no additional complaints Reports no additional complaints Musc Denies abnormal gait and Denies tingling Neuro Denies abnormal gait, Denies dizziness, Denies frequent falls, Denies headache(s), Denies restless legs and Denies tingling Psych Denies no additional complaints Physical exam (Primary Care) Tobacco/Smoking Status: Tobacco use Status Tobacco use date assessed 08/25/24 08/25/24 10:04 Patient Tobacco Use Status Former Tobacco user 08/25/24 10:04 Tobacco use type Cigarette 08/25/24 10:04 e-Cigarette/Vaping Use Never Used 08/25/24 10:04 PHQ-9: PHQ-9 Score PHQ-9: Total score 0 08/25/24 10:26 Depression Screening Interpretation: Negative Thrive Assessment: Date of Thrive Assessment Date Thrive assessed 08/25/24 08/25/24 10:06 Telehealth Telehealth Telehealth Platform: [employer] Location of provider rendering services: practice address Location of patient: address on file Patient Identification confirmed using: Name, : Yes Telehealth method: video Patient verbally consented to treatment: Yes Patient verbally consented to billing insurance company: Yes Patient informed of any privacy concerns related to visit: Yes Minutes spent on Phone/Video with Pt.: 15 Coding Level of Care Code Tele Est Pt Level 3 (92820) Diagnoses Chronic insomnia F51.04 Additional Codes PHQ-9 - 45830 - PHQ-9 Billing: Yes ([id number]) Assessment & Plan Assessment & Plan (1) Chronic insomnia: Code(s): F51.04 - Psychophysiologic insomnia Category: Medical Plan: Prescription refill sent for trazodone 150 mg per tablet , takes 3 tablets at bedtime, adverse effects reported with taking the medication which she has been on for more than 10 years now. Medications: Refilled trazodone 450 mg (3 x 150 mg) PO BEDTIME 270 tabs 1RF
== END 2024-08-25 11:02 | disposition home or self-care (01) ==
LOC: HO.HMCC 10:06
PROVIDERS: PCP Internal Medicine; Visit Provider Internal Medicine
DX: F51.04 Psychophysiologic insomnia (principal)

== ENCOUNTER → 2024-08-25 10:06 | Outpatient (BNVA) | payer MEDICARE, SELFPAY | PROVIDERS: PCP Internal Medicine; Visit Provider Internal Medicine ==

== ENCOUNTER 2024-08-26 15:26 | Emergency (ER) | payer MEDICARE, SELFPAY ==
[2024-08-26] VITALS (7 sets, daily range): BP systolic 133–203; BP diastolic 62–93; PULSE 89–107; RESP 13–20; TEMP 36.8–36.9; O2SAT 94–96; BMI 30.7
--- NOTE | ~2024-08-26 | XR_ITS ---
EXAMINATION: XR CHEST CLINICAL INFORMATION: Shortness of breath. COMPARISON: None available. TECHNIQUE: AP and lateral views of the chest were obtained. FINDINGS: The study is somewhat limited by kyphotic positioning and suboptimal inspiration. Examination suggests moderate to severe emphysema. Mild bilateral fibrotic changes. No focal infiltrate, effusion, or pneumothorax is appreciated. Mild elevation of left hemidiaphragm. The cardiac silhouette is suboptimally evaluated. The aorta is mildly atherosclerotic. Mild degenerative change of the spine. The tip of a presumed spinal stimulation lead projects posteriorly over the spinal canal at the mid to lower thoracic level. XR/XR chest 2V IMPRESSION: Findings as above. Electronically signed by: Dylan Pelletier MD 08/26/2024 05:56 PM [facility]
--- NOTE | 2024-08-26 15:57 | ECG_ITS ---
Test Reason : DYSPNEA Blood Pressure : / mmHG Vent. Rate : 100 BPM Atrial Rate : 100 BPM P-R Int : 136 ms QRS Dur : 086 ms QT Int : 338 ms P-R-T Axes : 044 049 031 degrees QTc Int : 436 ms Normal sinus rhythm Normal ECG When compared with ECG of 20-MAR-2019 16:21, Vent. rate has increased BY 43 BPM T wave inversion no longer evident in Anterior leads Referred By: Generic ED Physician Electronically Signed By:Kamron Freitas
[2024-08-26 16:22] LABS: MANUAL DIFF FLAG NO
[2024-08-26 16:23] LABS: Basophils Percent Auto 0.4 % (0-2); Eosinophils Percent Auto 0.4 % (0-4); Hematocrit 40.3 % (37.0-47.0); Hemoglobin 12.9 g/dl (12.0-16.0); Imm Gran Abs Auto 0.03 X10*3/uL (0.00-0.03); Imm Gran Pct Auto 0.3 % (0.0-0.4); Lymphocytes Absolute Auto 1.4 X10*3/uL (1.2-4.9); Lymphocytes Percent Auto 13.1 % (20-40); Mean Corpuscular Hemoglobin 27.7 pg (27.0-33.0); Mean Corpuscular Volume 86.5 fL (80.0-98.0); Mean Platelet Volume 9.9 fL (9.4-12.3); Monocytes Absolute Auto 0.4 X10*3/uL (0.1-1.2); Monocytes Percent Auto 4.2 % (2-11); Neutrophils Absolute Auto 8.6 x10*3/uL (2.0-8.3); Neutrophils Percent Auto 81.6 % (45-73); Platelet Count 276 X10*3/uL (160-400); Red Blood Count 4.66 X10*6/uL (4.20-5.50); Red Cell Distribution Width 14.3 % (11.0-16.0); White Blood Count 10.6 X10*3/uL (4.8-10.8)
[2024-08-26 16:24] LABS: Venous Blood Gas Refer to POC result
[2024-08-26 16:27] LABS: VBG Base Excess 6.9 mmol/L; VBG HCO3 33 mmol/L (22-26); VBG pCO2 55 mmHg; VBG pH 7.39 (7.32-7.43); VBG pO2 48 mmHg
[2024-08-26 16:37] LABS: Appearance Urine Clear; Color Urine Yellow; Glucose Urine UA Negative (Negative); Leukocyte Esterase Urine Trace (Negative); Nitrite Urine Negative (Negative); Specific Gravity - Urine <= 1.005 (1.005-1.025); UMIC TRIGGER UACC YES; Urine Blood Negative (Negative); Urine Ketones Negative (Negative); Urine Protein Negative (Neg-Trace)
[2024-08-26 16:38] LABS: Prothrombin Time 11.7 SEC (10.9-12.4)
[2024-08-26 16:52] LABS: Bacteria Urine None Seen (None Seen); Hyaline Casts Urine 0-2 /LPF (0-2); RBC Urine 0-2 /HPF (0-2); Squamous Epithelial Cell Urine 0-2 /HPF (0-2); WBC Urine 0-5 /HPF (0-5)
[2024-08-26 17:06] LABS: D Dimer High Sensitivity < 150 NG/ML
[2024-08-26 17:07] LABS: Alanine Aminotransferase 15 U/L (0-31); Albumin Level 4.6 g/dL (3.5-5.0); Anion Gap 18 (12-20); Aspartate Amino Transferase 25 U/L (5-31); Bilirubin Total 0.2 mg/dL (0.0-1.0); Blood Urea Nitrogen 11 mg/dL (9-16); Calcium 10.3 mg/dL (8.4-10.2); Carbon Dioxide 28 mmol/L (22-29); Chloride 102 mmol/L (96-108); Creatinine Clr Calc Pharmacy 53.7; Estimated Glomerular Filt Rate > 60; Glucose Random 110 mg/dL (60-115); Magnesium 1.9 mg/dL (1.6-2.6); Potassium 4.2 mmol/L (3.3-5.1); Sodium 144 mmol/L (135-145); Total Protein 7.4 g/dL (6.5-8.0)
[2024-08-26 17:10] LABS: B Type Natriuretic Peptide 40 pg/mL (<100)
[2024-08-26 17:13] LABS: Troponin-I High Sensitivity 3.3 ng/L (<3.5-17.0)
[2024-08-26 17:49] LABS: Influenza A PCR NEGATIVE (Negative); Influenza B PCR NEGATIVE (Negative); Resp Syncy Virus RNA Qual PCR NEGATIVE (Negative); SARS COV2 PCR INHOUSE NEGATIVE (Negative)
[2024-08-26 17:57] LABS: Alkaline Phosphatase 74 U/L (39-117)
[2024-08-26 18:35] LABS: Troponin-I High Sensitivity 6.2 ng/L (<3.5-17.0)
[2024-08-26] MEDS: Magnesium Sulfate/H2O 2 GM/50 ML PIGGYBACK IV (18:35)
[2024-08-26] MEDS: Morphine Sulfate 2 MG/ML CARTRIDGE IVPUSH (19:08)
--- NOTE | 2024-08-26 19:30 | MHC.EDTECH ---
This tech took over care of patient at 1900,rounded and introduced self to pt,vitals taken,BP is elevated 203/69 RN was made aware,pt requested water,water given,daughter is at bedside call triana in reach
--- NOTE | 2024-08-26 19:49 | PC.NURSE ---
Pt and family member are both extremely anxious,, have used call triana 3x in the last ten minutes because they both feel like the patient cannot calm down . Pt and family worried about morphine admin, stating that meds often give the opposite affect of intention, stating I've been given a sleeping med and have been up for 2 days afterward. Patient regularly takes oxycodone at home. Explained to patient and family member that patient cannot go home with blood pressure so elevated. Provider Yaneth WHITEHEAD made aware. Yaneth to go to speak to patient and family member in room.
[2024-08-26] MEDS: Nitroglycerin 0.4 MG TAB.SUBL SUBLINGUAL ×2 (20:05→21:40)
[2024-08-26] MEDS: LORazepam 2 MG/ML VIAL 1 MG IVPUSH (20:08)
[2024-08-26] MEDS: Acetaminophen 325 MG TABLET 975 MG PO (21:38)
[2024-08-26] MEDS: Gabapentin 300 MG CAPSULE PO (22:40)
[2024-08-26] MEDS: oxyCODONE HCl Immed Release 5 MG TABLET PO (22:40)
--- NOTE | 2024-08-26 22:42 | ED_ITS ---
HPI - SOB/Dyspnea General Chief Complaint: Dyspnea Stated Complaint: SOB,DIZZY,DIARRHEA PER EMS Time Seen by Provider: 08/26/24 16:17 Source: patient Limitations: no limitations History of Present Illness ED Provider: Vibha Carranza PA-C HPI Narrative: 79-year-old female with a history of COPD on 2 L supplemental oxygen at baseline, prior tobacco abuse, lung cancer status post left partial lobectomy, fibromyalgia, osteoarthritis, chronic pain on chronic opiate therapy, insomnia on high dose trazodone, presents with shortness of breath. Patient states today she felt extremely short of breath, she gave herself 3 [id number] nebulizer treatments, when EMS arrived they gave an additional treatment. Patient denies recent cough or cold symptoms, no fevers at home. Denies chest pain. Denies new weight gain, new pedal edema, unilateral calf pain or swelling. Related Data Home Medications ?Medication ?Instructions ?Recorded ?Confirmed alendronate 70 mg tablet 70 mg PO QWEEK 04/18/21 05/14/23 carisoprodol 350 mg tablet 350 mg PO TID PRN 04/18/21 05/14/23 gabapentin 300 mg capsule 0 mg PO 04/18/21 05/14/23 ascorbate calcium (vitamin C) 500 500 mg PO DAILY 03/27/22 05/14/23 mg tablet cholecalciferol (vitamin D3) 50 50 mcg PO DAILY 03/27/22 05/14/23 mcg (2,000 unit) capsule coenzyme Q10 100 mg capsule 100 mg PO DAILY 03/27/22 05/14/23 (CoQ-10) hydrocodone 7.5 mg-acetaminophen 1 tab PO QID PRN 06/16/22 05/14/23 325 mg tablet Oxygen Home Use 12/14/22 05/14/23 nebulizers 12/14/22 05/14/23 Previous Rx's ?Medication ?Instructions ?Recorded albuterol sulfate 90 mcg/actuation 2 puff inhalation Q6H PRN 09/28/23 aerosol inhaler shortness of breath or wheezing #8.5 grams pravastatin 80 mg tablet 80 mg PO DAILY #90 tabs 08/22/24 ipratropium 0.5 mg-albuterol 3 mg 3 ml inhalation Q6H 30 days #180 mL 08/23/24 (2.5 mg base)/3 mL nebulization soln trazodone 150 mg tablet 450 mg (3 x 150 mg) PO BEDTIME 08/25/24 #270 tabs Allergies Allergy/AdvReac Type Severity Reaction Status Date / Time aspirin [ASPIRIN] Allergy Intermediate HEADACHE Verified 08/26/24 15:54 Neuromuscular Blockers, Allergy Intermediate AGITATION,HEADACHE,GI Verified 08/26/24 15:54 Steroidal UPSET [STEROIDAL NEUROMUSCULAR BLOCKERS] ibuprofen [From ADVIL] AdvReac Intermediate STOMACH Verified 08/26/24 15:54 UPSET steroids Allergy Severe Aggressive Uncoded 08/25/24 10:16 FLONASE Allergy Intermediate intolerance Uncoded 08/25/24 10:16 Review of Systems 2 Review of Systems: Yes all other systems are reviewed and are negative Constitutional: Constitutional: Denies fatigue and Denies fever(s) Cardiovascular: Cardiovascular: Denies chest pain and Reports dyspnea Respiratory: Respiratory: Denies cough, Denies hemoptysis, Reports dyspnea and Reports wheezing Gastrointestinal: Gastrointestinal: Denies abdominal pain, Denies nausea and Denies vomiting Endocrine: Endocrine: Denies fatigue Allergic/Immunologic: Allergic/Immunologic: Reports wheezing PMFSH Past Medical History Attestation statement: The following information was validated with the patient. Medical History Impaired fasting glucose Osteopenia Personal history of nicotine dependence Pulmonary nodule History of lung cancer (~2016) Osteoarthritis of both hips Tubular adenoma of colon Fibromyalgia Chronic insomnia Karlie's thyroiditis COPD (chronic obstructive pulmonary disease) Hyperlipidemia Surgical History History of lung surgery (~09/2017) History of colonoscopy (~02/2014) History of back surgery (~2002) History of left knee surgery Family History Family History Father Bone cancer Mother AAA (abdominal aortic aneurysm) Daughter No problems noted. Son No problems noted. Social History Social History Housing: Other Alcohol intake: former Patient Tobacco Use Status: Former Tobacco user Tobacco use type: Cigarette Cigarette Packs Per Day: 1 Cigarettes Per Day: 20 Years Smoked: 20 Smoked in Last 30 Days: No e-Cigarette/Vaping Use: Never Used Second Hand Smoke Exposure: No Use of substances other than those prescribed or required for medical reasons: No Advance Directives: No Advance Directives Information Provided: No Do you have a plan to hurt others: No Plan Current occupational status: retired Cognitive needs: No Hearing needs: No Vision needs: Yes Physical Exam 2 Vital Signs: Vital Signs: Last Vital Signs Temp 98.4 F 08/26/24 19:28 Pulse 91 08/26/24 23:36 Resp 13 08/26/24 23:36 BP 181/69 H 08/26/24 23:36 Pulse Ox 94 08/26/24 23:36 O2 Del Method Nasal Cannula 08/26/24 23:36 O2 Flow Rate 2 08/26/24 23:36 Oxygen Flow Rate 2 08/26/24 15:49 BMI result Body Mass Index 30.7 Const: Other: Alert, overall well in appearance Orientation/consciousness: patient oriented x3 Resp: Other: Tachypneic, no wheezing on exam, her lung sounds are not diminished Cardio: Other: Normal peripheral perfusion, trace pedal edema Skin: Other: Warm dry no rash Neuro: General: patient oriented x3, no focal motor deficits and CN's II-XI intact bilaterally Psych: Other: Cooperative, anxious at times Course Course Course Narrative: Patient's pressures continue to spike, she we will be due for pain medication, we will give 2 mg of IV morphine. The morphine had no effect on the patient's blood pressure, I am transitioning to nitroglycerin. I am also giving a mg of Ativan as she is extremely anxious. Reevaluation(s) Reevaluation #1: pressures normalized after nitro x2 and the ativan...............130s SBP Time: 22:44 Reevaluation #2: About to be discharged, her pressures or back in the 180s, her heart rate is still hovering in the 90s, we will admit for hypertensive urgency, we will be giving Lopressor as it is beta 1 selective, Time: 00:08 Medications Administered Generic Name Dose Route Start Last Admin Trade Name Freq PRN Reason Stop Dose Admin Nitroglycerin 0.4 mg 08/26/24 19:55 08/26/24 21:40 Nitroglycerin 0.4 Mg Tab.Subl SUBLINGUAL 0.4 mg [id number] PRN Administration hypertension Discontinued Medications Generic Name Dose Route Start Last Admin Trade Name [place] PRN Reason Stop Dose Admin Acetaminophen 975 mg 08/26/24 21:08 08/26/24 21:38 Acetaminophen 325 Mg Tablet PO 08/26/24 21:09 975 mg ONCE ONE Administration Acetaminophen 650 mg 08/26/24 21:08 08/26/24 21:39 Acetaminophen 325 Mg Tablet PO 08/26/24 21:09 Not Given ONCE ONE Gabapentin 300 mg 08/26/24 22:33 08/26/24 22:40 Gabapentin 300 Mg Capsule PO 08/26/24 22:34 300 mg ONCE ONE Administration Magnesium Sulfate 2 gm in 50 mls @ 25 mls/hr 08/26/24 18:20 08/26/24 20:37 Magnesium Sulfate/H2o IV 08/26/24 20:19 Infused ONCE ONE Infusion Lorazepam 1 mg 08/26/24 19:55 08/26/24 20:08 Lorazepam 2 Mg/Ml Vial IVPUSH 08/26/24 19:56 1 mg ONCE ONE Administration Morphine Sulfate 2 mg 08/26/24 18:42 08/26/24 19:08 Morphine Sulfate 2 Mg/Ml Cartridge IVPUSH 08/26/24 18:43 2 mg ONCE ONE Administration Protocol Oxycodone HCl 5 mg 08/26/24 22:33 08/26/24 22:40 Oxycodone Hcl Immed Release 5 Mg Tablet PO 08/26/24 22:34 5 mg ONCE ONE Administration Medical Decision Making Medical Decision Making MDM Narrative: 79-year-old female with a history of COPD on 2 L supplemental oxygen at baseline, prior tobacco abuse, lung cancer status post left partial lobectomy 2016, fibromyalgia, osteoarthritis, chronic pain on chronic opiate therapy,insomnia on high dose trazodone, presents with shortness of breath. Patient states today she felt extremely short of breath, she gave herself 3 [id number] nebulizer treatments, when EMS arrived they gave an additional treatment. Patient denies recent cough or cold symptoms, no fevers at home. Denies chest pain. Denies new weight gain, new pedal edema, unilateral calf pain or swelling. Problem: COPD, oxygen requirement, lung cancer, fibromyalgia, chronic pain History: Per patient I have considered the following differential diagnoses: Pneumonia, PE, COPD exacerbation, hypertensive urgency, new heart failure Plan: Patient here with likely COPD exacerbation, she is no longer wheezing, with the albuterol she received prior to arrival, it seemed to have markedly helped her symptoms. Screening labs including viral panel VBG, chest x-ray are in process. Also considered new onset heart failure, she is somewhat hypertensive at this point and she does not have a history. Performed bedside echo, her contractility is grossly normal, her IVC is collapsing, and again she does not appear volume overloaded on exam, I also do not detect B-lines. Adding troponin and BNP, EKG. With her cancer history, she could have a PE, we will add a D-dimer. I would like to complete tx for COPD exacerbation with steroid, however she emphatically declines, she states she can not tolerate steroids. We will give 2 g of magnesium. I have independently reviewed the following tests: Labs: No leukocytosis, not anemic, no electrolyte abnormality, troponin 3.3, 2nd troponin 6.2, BNP 40, dimer <150, viral panel neg, blood gas overall normal EKG: Normal sinus rhythm, rate of 100, no ischemic changes no ectopy Chest x-ray:FINDINGS: The study is somewhat limited by kyphotic positioning and suboptimal inspiration. Examination suggests moderate to severe emphysema. Mild bilateral fibrotic changes. No focal infiltrate, effusion, or pneumothorax is appreciated. Mild elevation of left hemidiaphragm. The cardiac silhouette is suboptimally evaluated. The aorta is mildly atherosclerotic. Mild degenerative change of the spine. The tip of a presumed spinal stimulation lead projects posteriorly over the spinal canal at the mid to lower thoracic level. XR/XR chest 2V IMPRESSION: Findings as above. Electronically signed by: Dylan Pelletier MD 08/26/2024 05:56 PM [facility] Lab Data 08/26/24 16:17 08/26/24 16:17 Labs: Lab Results 08/26/24 08/26/24 08/26/24 Range/Units 16:17 16:22 16:24 WBC 10.6 (4.8-10.8) X10*3/uL RBC 4.66 (4.20-5.50) X10*6/uL Hgb 12.9 (12.0-16.0) g/dl Hct 40.3 (37.0-47.0) % MCV 86.5 (80.0-98.0) fL MCH 27.7 (27.0-33.0) pg MCHC 32.0 (31.0-35.0) g/dl RDW 14.3 (11.0-16.0) % Plt Count 276 (160-400) X10*3/uL MPV 9.9 (9.4-12.3) fL Immature Gran % (Auto) 0.3 (0.0-0.4) % Neut % (Auto) 81.6 H (45-73) % Lymph % (Auto) 13.1 L (20-40) % [place] % (Auto) 4.2 (2-11) % Eos % (Auto) 0.4 (0-4) % Baso % (Auto) 0.4 (0-2) % Lymph # (Auto) 1.4 (1.2-4.9) X10*3/uL [place] # (Auto) 0.4 (0.1-1.2) X10*3/uL Eos # (Auto) 0.0 (0.0-0.4) X10*3/uL Baso # (Auto) 0.0 (0.0-0.2) X10*3/uL Abs Immat Gran (auto) 0.03 (0.00-0.03) X10*3/uL Absolute Neuts (auto) 8.6 H (2.0-8.3) x10*3/uL Absolute Nucleated RBC 0.000 (0.0-0.012) X10*3/uL Nucleated RBC % (auto) 0.0 (0.0-0.2) /100WBC PT 11.7 (10.9-12.4) SEC INR 1.0 (0.9-1.1) D-Dimer High Sensitivty NG/ML VBG pH 7.39 (7.32-7.43) VBG pCO2 55 mmHg VBG pO2 48 mmHg VBG HCO3 33 H (22-26) mmol/L VBG O2 Saturation 82.0 % VBG Base Excess 6.9 mmol/L Sodium 144 (135-145) mmol/L Potassium 4.2 (3.3-5.1) mmol/L Chloride 102 (96-108) mmol/L Carbon Dioxide 28 (22-29) mmol/L Anion Gap 18 (12-20) BUN 11 (9-16) mg/dL Creatinine 0.76 (0.5-1.4) mg/dL Estim Creat Clear Calc 53.7 Estimated GFR > 60 Random Glucose 110 (60-115) mg/dL Calcium 10.3 H D (8.4-10.2) mg/dL Magnesium 1.9 (1.6-2.6) mg/dL Total Bilirubin 0.2 (0.0-1.0) mg/dL AST 25 (5-31) U/L ALT 15 (0-31) U/L Alkaline Phosphatase 74 (39-117) U/L Troponin I High Sens 3.3 (<3.5-17.0) ng/L B-Natriuretic Peptide 40 (<100) pg/mL Total Protein 7.4 (6.5-8.0) g/dL Albumin 4.6 (3.5-5.0) g/dL Urine Color Yellow Urine Appearance Clear Urine pH 7.0 (5.0-9.0) Ur Specific [place] <= 1.005 (1.005-1.025) Urine Protein Negative (Neg-Trace) mg/dL Urine Glucose (UA) Negative (Negative) mg/dL Urine Ketones Negative (Negative) mg/dL Urine Blood Negative (Negative) Urine Nitrite Negative (Negative) Ur Leukocyte Esterase Trace H (Negative) Urine RBC 0-2 (0-2) /HPF Urine WBC 0-5 (0-5) /HPF Ur Squamous Epith Cells 0-2 (0-2) /HPF Urine Bacteria None Seen (None Seen) Hyaline Casts 0-2 (0-2) /LPF Influenza Type A (PCR) NEGATIVE (Negative) Influenza Type B (PCR) NEGATIVE (Negative) RSV RNA Qual (PCR) NEGATIVE (Negative) SARS-CoV-2 RNA (RT-PCR) NEGATIVE (Negative) 08/26/24 08/26/24 Range/Units 16:36 18:06 WBC (4.8-10.8) X10*3/uL RBC (4.20-5.50) X10*6/uL Hgb (12.0-16.0) g/dl Hct (37.0-47.0) % MCV (80.0-98.0) fL MCH (27.0-33.0) pg MCHC (31.0-35.0) g/dl RDW (11.0-16.0) % Plt Count (160-400) X10*3/uL MPV (9.4-12.3) fL Immature Gran % (Auto) (0.0-0.4) % Neut % (Auto) (45-73) % Lymph % (Auto) (20-40) % [place] % (Auto) (2-11) % Eos % (Auto) (0-4) % Baso % (Auto) (0-2) % Lymph # (Auto) (1.2-4.9) X10*3/uL [place] # (Auto) (0.1-1.2) X10*3/uL Eos # (Auto) (0.0-0.4) X10*3/uL Baso # (Auto) (0.0-0.2) X10*3/uL Abs Immat Gran (auto) (0.00-0.03) X10*3/uL Absolute Neuts (auto) (2.0-8.3) x10*3/uL Absolute Nucleated RBC (0.0-0.012) X10*3/uL Nucleated RBC % (auto) (0.0-0.2) /100WBC PT (10.9-12.4) SEC INR (0.9-1.1) D-Dimer High Sensitivty < 150 NG/ML VBG pH (7.32-7.43) VBG pCO2 mmHg VBG pO2 mmHg VBG HCO3 (22-26) mmol/L VBG O2 Saturation % VBG Base Excess mmol/L Sodium (135-145) mmol/L Potassium (3.3-5.1) mmol/L Chloride (96-108) mmol/L Carbon Dioxide (22-29) mmol/L Anion Gap (12-20) BUN (9-16) mg/dL Creatinine (0.5-1.4) mg/dL Estim Creat Clear Calc Estimated GFR Random Glucose (60-115) mg/dL Calcium (8.4-10.2) mg/dL Magnesium (1.6-2.6) mg/dL Total Bilirubin (0.0-1.0) mg/dL AST (5-31) U/L ALT (0-31) U/L Alkaline Phosphatase (39-117) U/L Troponin I High Sens 6.2 D (<3.5-17.0) ng/L B-Natriuretic Peptide (<100) pg/mL Total Protein (6.5-8.0) g/dL Albumin (3.5-5.0) g/dL Urine Color Urine Appearance Urine pH (5.0-9.0) Ur Specific [place] (1.005-1.025) Urine Protein (Neg-Trace) mg/dL Urine Glucose (UA) (Negative) mg/dL Urine Ketones (Negative) mg/dL Urine Blood (Negative) Urine Nitrite (Negative) Ur Leukocyte Esterase (Negative) Urine RBC (0-2) /HPF Urine WBC (0-5) /HPF Ur Squamous Epith Cells (0-2) /HPF Urine Bacteria (None Seen) Hyaline Casts (0-2) /LPF Influenza Type A (PCR) (Negative) Influenza Type B (PCR) (Negative) RSV RNA Qual (PCR) (Negative) SARS-CoV-2 RNA (RT-PCR) (Negative) Discharge Plan Discharge Clinical Impression: COPD exacerbation, Hypertensive urgency Patient Disposition: Admitted As Inpatient Instructions: COPD (Chronic Obstructive Pulmonary Disease) (ED) Prescriptions: No Action albuterol sulfate 90 mcg/actuation HFA aerosol inhaler 2 puff inhalation Q6H PRN (Reason: shortness of breath or wheezing) Qty: 8.5 9RF pravastatin 80 mg tablet 80 mg PO DAILY Qty: 90 0RF ipratropium-albuterol 0.5 mg-3 mg(2.5 mg base)/3 mL solution for nebulization 3 ml inhalation Q6H 30 Days Qty: 180 6RF carisoprodol 350 mg tablet 350 mg PO TID PRN gabapentin 300 mg capsule 0 mg PO alendronate 70 mg tablet 70 mg PO QWEEK cholecalciferol (vitamin D3) 50 mcg (2,000 unit) capsule 50 mcg PO DAILY ascorbate calcium (vitamin C) 500 mg tablet 500 mg PO DAILY coenzyme Q10 [CoQ-10] 100 mg capsule 100 mg PO DAILY hydrocodone-acetaminophen 7.5-325 mg tablet 1 tab PO QID PRN (DME) nebulizers Misc See Rx Instructions .Route Rx Instructions: As directed (DME) Oxygen Home Use Kit See Rx Instructions .Route Rx Instructions: As directed trazodone 150 mg tablet 450 mg PO BEDTIME Qty: 270 1RF Print Language: Estonian
--- NOTE | 2024-08-26 23:00 | MHC.EDTECH ---
This tech resumed care for pt at 2300,rounds completed,call triana in reach
[2024-08-27] VITALS (7 sets, daily range): BP systolic 117–179; BP diastolic 44–77; PULSE 73–80; RESP 16–20; TEMP 36.6; O2SAT 96–97
[2024-08-27] MEDS: traZODone HCL 50 MG TABLET 450 MG PO (00:28)
[2024-08-27] MEDS: Metoprolol Tartrate 5 MG/5 ML VIAL IVPUSH (00:30)
[2024-08-27] MEDS: amLODIPine Besylate 5 MG TABLET PO (01:24)
[2024-08-27] MEDS: hydrALAZINE HCl 20 MG/ML VIAL 10 MG IVPUSH (01:25)
--- NOTE | 2024-08-27 01:48 | PC.NURSE ---
Pt admission declined by the hospitalist. 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
== END 2024-08-27 03:25 | disposition home or self-care (01) ==
PROVIDERS: Physician Assistant Medical; Emergency Provider Internal Medicine; PCP Internal Medicine
DX: J44.1 Chronic obstructive pulmonary disease with (acute) exacerbation (principal); I16.0 Hypertensive urgency; Z03.818 Encounter for observation for suspected exposure to other biological agents ruled out; I10 Essential (primary) hypertension; E78.5 Hyperlipidemia, unspecified; G89.4 Chronic pain syndrome; Z99.81 Dependence on supplemental oxygen; Z85.118 Personal history of other malignant neoplasm of bronchus and lung; Z87.891 Personal history of nicotine dependence; Z79.891 Long term (current) use of opiate analgesic; Z79.899 Other long term (current) drug therapy; Z79.02 Long term (current) use of antithrombotics/antiplatelets
CPT/HCPCS: 0241U; 36415; 71046; 80053; 81001; 82803; 83735; 83880; 84484; 85025; 85379; 85610; 93005; 96365; 96366; 96375; 99285; J0360; J2060; J2270; J3475

== ENCOUNTER → 2024-08-26 15:57 | Outpatient (BNV) | payer MEDICARE, SELFPAY | PROVIDERS: Emergency Provider Internal Medicine; PCP Internal Medicine; Visit Provider Internal Medicine Cardiovascular Disease | DX: R06.00 Dyspnea, unspecified (principal) | CPT/HCPCS: 93010 ==

== ENCOUNTER 2024-08-28 14:28 | Outpatient (AMB) | payer MEDICARE, SELFPAY ==
[2024-08-28 14:34] VITALS: BP 148/62; PULSE 101; O2SAT 92; BMI 29.4
--- NOTE | 2024-08-28 14:34 | A.OFFVIS_ITS ---
Vital Signs 08/28/24 14:34 Height 5 ft 1.5 in Weight 158 lb BMI 29.4 BP 148/62 H Blood Pressure Location Lt brachial Position Sitting Pulse 101 H Pulse Source Doppler Pulse Oximetry (%) 92 Oxygen Delivery Method Nasal Cannula Oxygen Flow Rate 5 Intake Visit Reasons: copd Allergies aspirin [ASPIRIN] Allergy (Intermediate, Verified 08/26/24 15:54) HEADACHE Neuromuscular Blockers, Steroidal [STEROIDAL NEUROMUSCULAR BLOCKERS] Allergy (Intermediate, Verified 08/26/24 15:54) AGITATION,HEADACHE,GI UPSET ibuprofen [From ADVIL] Adverse Reaction (Intermediate, Verified 08/26/24 15:54) STOMACH UPSET steroids Allergy (Severe, Uncoded 08/25/24 10:16) Aggressive FLONASE Allergy (Intermediate, Uncoded 08/25/24 10:16) intolerance HPI Comments Details: The patient is a 79-year-old woman with a known history of tobacco dependency in the past, COPD and history of lung cancer. She is status post lobectomy several years back with curative intent. Subsequently after that she did follow-up with Oncology. She did have a CT scan of the chest back in 2018 demonstrating stable postsurgical changes on the left-hand side. The patient did have a couple pulmonary nodules. The patient has had a CT scan since then. In addition to that she does have dyspnea on exertion. The patient does use oxygen supplementation usually between 2.5-3 L. She does respond better to the continues oxygen. Recently the family about a portable oxygen concentrator that can provide continuously to flow. Although the battery only lasts about an hour. The patient has not had any pulmonary function studies in a couple years. In regards of her respiratory medications they have been very expensive for her. She typically uses a DuoNeb between 2 to 3 times a day with good effect. At this point I believe this is enough. She does not have any significant wheezing or chest congestion to suggest the need for inhaled cortical steroid therapy at this time. 10/13/2021 the patient is here for pulmonary follow-up visit. Overall the patient has been doing well. She continues using her oxygen with good effect. In addition to that she has continued her respiratory therapy. She did undergo a repeat CT scan of the chest that we personally reviewed together. We were able to compared to the CT scan that she had from 2018. It appears that she has a ground-glass nodular density which is demonstrating interval worsening size when compared to 2018. with a history of lung cancer will be reasonable to further address this nodular density with a PET scan. In addition to that the patient did undergo pulmonary function studies which we personally reviewed demonstrating moderate to severe COPD. The patient does have a severe diffusion impairment which correlates with her oxygen requirements. Based on her decreased DLCO the patient may not be a surgical candidate. We consider bronchoscopy to address this parenchymal abnormality is found to be abnormal on the PET scan. 12/09/2021 the patient is here for a pulmonary follow-up visit. Overall the patient has been doing well. She does continue to have dyspnea on exertion. [id number] severity. The oxygen has been helpful. She cannot afford inhalers per se. However, the nebulizer therapy has been very effective in beneficial. Currently she is on DuoNeb. Will consider budesonide in the future. Right now she is not having any significant productive cough or wheezing so we can hold off on the steroid component. In the meantime we did review her recent PET scan which demonstrated no significant FDG activity in the larger right-sided subsolid nodular density. She does have a history of cancer. Although the PET scan is reassuring she does need to have follow-up CT scan in 6 months. Otherwise patient is without any other complaints. I did encourage her to start pulmonary rehab online. I did give her information in order to do so. Will follow-up in 6 months or sooner if any new issues arise. 06/16/2022 the patient is here for a pulmonary follow-up visit. Overall she is doing well she continues use her nebulized therapy. This has been effective. She does not have any inhalers specially because they have been very expensive for her. We did talk about different alternatives including using a repeat card and also trying generic inhalers that now are available which be lower in [place]. I do believe that she will need at least a rescue inhaler to have with her when she leaves her home. Also, we can consider maintenance inhalers in the near future. We did discuss her last CT scan of the chest done in April 2022 demonstrating stable pulmonary nodules and postsurgical changes after having her lung cancer resected. Will plan to repeat the CT scan 6 months from now which be [address] scan to make sure that those nodular densities are not worse. She continues use oxygen continue sleep. When she is at home with the long cord she sometimes increases it to 3 L because she feels is not enough. 12/14/2022 the patient is here for pulmonary follow-up visit. Overall she is doing well. She is using the nebulized therapy. She is able to expectorate well in the morning. She does feel some heaviness specially when she walks. She does use the oxygen with good effect. She is using conserving device. The patient overall is doing well with the nebulized therapy. She did have a recent CT scan of the chest were personally reviewed and compared to her last CT scan from April 2022. The CT chest has not been officially read, but no significant changes on the GG nodular density. Will plan to repeat CT chest in 1 year if no other findings on her official CT chest read. 06/17/2023 the patient is here for pulmonary follow-up visit. Overall the patient is doing fairly well. She is using her respiratory medication. She is also using her oxygen. Her oxygen requirements have not changed. She also did get the Acapella valve. I did recommend she use it twice a day as good exercise physiology and good mucus clearance. She does not have any significant mucus at this time however. Her last CT scan was back in December 2022. The patient did have a nodular density. She has a history of lung cancer. She will return in 6 months to follow up her repeat CT scan in December 2023. If she has any issues prior to that she is to call the office for an earlier assessment. the patient is wondering about Trelegy inhaler. We did talk about the inhalers and potential cost. She will think about it. In the meantime I will send a prescription if so if she decides to use it she can started once daily. 08/28/2024 the patient is here for a pulmonary follow-up visit. The patient has been having worsening respiratory symptoms. Recently she had an episode of shortness of breath and tachypnea. Ambulance was called to the scene. She was given 3 neb treatments and then she went to the ER and her blood pressure was high with systolic above 200. The patient was given medications in the blood pressure came down. It was felt to be medication related since she was also taking Sudafed. She was subsequently discharged although she did not feel completely well. No evidence of any heart damage the time she did have a chest x-ray which I reviewed demonstrating no acute disease. She also had a recent CT scan of the chest which I also reviewed demonstrating the same abnormal ill- defined density in the right upper lobe area. Very similar to before. Does not appear to be progressing least year to year but when compared to 30/10 seems to be just a little bit worse. Still has not been read yet therefore wait for the final read. The patient now is taking Norvasc and blood pressure is better. She still has some diminished breath sounds some wheezing on exam so therefore will go ahead and optimize her respiratory therapy at this time by adding budesonide b.i.d. continue with the DuoNeb and also will add allergy medicine as well. She will continue using her oxygen. I did advise her to get a pulse oximeter to maintain her oxygen level between 92-97. The patient unfortunately had increased her oxygen when she did not feel good up to 5 L at home which was not a safe thing to do. [facility] Medical History Impaired fasting glucose Osteopenia Personal history of nicotine dependence Pulmonary nodule History of lung cancer (~2016) Osteoarthritis of both hips Tubular adenoma of colon Fibromyalgia Chronic insomnia Karlie's thyroiditis COPD (chronic obstructive pulmonary disease) Hyperlipidemia Surgical History History of lung surgery (~09/2017) History of colonoscopy (~02/2014) History of back surgery (~2002) History of left knee surgery Family History Father Bone cancer Mother AAA (abdominal aortic aneurysm) Daughter No problems noted. Son No problems noted. Social History Housing: Other Alcohol intake: former Patient Tobacco Use Status: Former Tobacco user Tobacco use type: Cigarette Cigarette Packs Per Day: 1 Cigarettes Per Day: 20 Years Smoked: 20 e-Cigarette/Vaping Use: Never Used Second Hand Smoke Exposure: No Current occupational status: retired Cognitive needs: No Hearing needs: No Vision needs: Yes Review of Systems Const Denies fatigue, Denies frequent falls, Denies headache(s), Denies night sweats and Denies weight loss ENT Denies dizziness and Denies headache(s) Card Denies chest pain, Reports dyspnea and Reports dyspnea on exertion Resp Denies chest congestion, Reports dyspnea, Reports dyspnea on exertion and Reports wheezing GI Reports no additional complaints Reports no additional complaints Musc Denies no additional complaints, Denies abnormal gait and Denies tingling Neuro Denies abnormal gait, Denies behavioral changes, Denies dizziness, Denies frequent falls, Denies headache(s), Denies restless legs, Denies Sensory deficit (Neuro) and Denies tingling Psych Denies no additional complaints and Denies behavioral changes Endo Denies fatigue Chris/Lymph Denies easy bleeding and Denies lymphadenopathy Aller/Immun Reports wheezing Physical Exam Vital Signs: Last Vital Signs Pulse 101 H 08/28/24 14:34 BP 148/62 H 08/28/24 14:34 Pulse Ox 92 08/28/24 14:34 Oxygen Delivery Method Nasal Cannula 08/28/24 14:34 Oxygen Flow Rate 5 08/28/24 14:34 BMI result Body Mass Index 29.4 Const General: alert Neck Neck: Yes normal visual inspection, Yes full ROM and Yes no lymphadenopathy Chest Chest palpation & inspection: normal inspection of the chest Resp Effort & Inspection: prolonged expiratory phase Auscultation: diminished lung sounds Cardio Rate: regular rate Rhythm: regular rhythm Heart sounds: S1 normal heart sound present and S2 normal heart sound present GI Palpation (GI): Soft to palpation and nontender Auscultation: normal bowel sounds Skin General skin exam: rashes and/or lesions noted Neuro Sensory Exam: No Sensory deficit (Neuro) Assessment & Plan Assessment & Plan (1) COPD (chronic obstructive pulmonary disease): Comment: Severe Code(s): J44.9 - Chronic obstructive pulmonary disease, unspecified Category: Medical Qualifiers: COPD type: chronic bronchitis Chronic bronchitis type: simple Qualified Code(s): J41.0 - Simple chronic bronchitis (2) History of lung cancer: Onset Date: ~2016 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) Code(s): Z85.118 - Personal history of other malignant neoplasm of bronchus and lung Category: Medical (3) Pulmonary nodule: Code(s): R91.1 - Solitary pulmonary nodule Category: Medical Plan Continue DuoNeb therapy 4 times a day start BUdeonide nebs BID STACIA as needed continue oxygen supplementation 2.5-3 L continuous to keep pox 90-97% CPT for acapella valve PFTs ECHO Singulair PM Claritin AM follow-up in 6 months Orders: Orders CA echo transthoracic complete Today I27.20 - Pulmonary hypertension, unspecified PFT pulmonary function test Today J44.9 - Chronic obstructive pulmonary disease, unspecified Medications: New montelukast 10 mg PO DAILY 30 tabs 11RF 30 days J45.909 - Unspecified asthma, uncomplicated loratadine (Claritin) 10 mg PO DAILY 30 tabs 11RF 30 days J30.2 - Other seasonal allergic rhinitis, J45.909 - Unspecified asthma, uncomplicated budesonide 0.25 mg (2 mL) inhalation BID 120 mL 11RF 30 days J44.9 - Chronic obstructive pulmonary disease, unspecified azithromycin Take 1 tablet on Wednesday/Wednesday/Wednesday 250 mg PO 3XW 12 tabs 1RF 28 days K21.9 - Gastro-esophageal reflux disease without esophagitis Coding Level of Care Code Est Pt Level 4 (22842) Complex EM visit Add On G2211 Diagnoses Simple chronic bronchitis J41.0 COPD type: chronic bronchitis Chronic bronchitis type: simple History of lung cancer Z85.118 Pulmonary nodule R91.1 Time Spent (min) 17
== END 2024-08-28 15:06 | disposition home or self-care (01) ==
PROVIDERS: PCP Internal Medicine; Visit Provider Hospitalist
DX: J41.0 Simple chronic bronchitis (principal); Z85.118 Personal history of other malignant neoplasm of bronchus and lung; R91.1 Solitary pulmonary nodule
CPT/HCPCS: 99214; G2211

== ENCOUNTER → 2024-08-28 14:28 | Outpatient (BNVA) | payer MEDICARE, SELFPAY | PROVIDERS: PCP Internal Medicine; Visit Provider Hospitalist | DX: J41.0 Simple chronic bronchitis (principal); R91.1 Solitary pulmonary nodule; Z85.118 Personal history of other malignant neoplasm of bronchus and lung | CPT/HCPCS: 99212 ==

== ENCOUNTER 2024-09-21 13:35 | Outpatient (AMB) | payer MEDICARE, SELFPAY ==
[2024-09-21 13:47] VITALS: BP 146/80; PULSE 97; O2SAT 94; BMI 29.2
--- NOTE | 2024-09-21 13:47 | A.OFFPC_ITS ---
Vital Signs 09/21/24 13:47 Height 5 ft 1.5 in Weight 157 lb BMI 29.2 BP 146/80 H Blood Pressure Location Rt brachial Position Sitting Pulse 97 Pulse Source Pulse Oximeter Pulse Oximetry (%) 94 Oxygen Delivery Method Room Air Intake Visit Reasons: Med refill Intake Note: Pt is here today for a med refill Allergies aspirin [ASPIRIN] Allergy (Intermediate, Verified 09/21/24 14:01) HEADACHE Neuromuscular Blockers, Steroidal [STEROIDAL NEUROMUSCULAR BLOCKERS] Allergy (Intermediate, Verified 09/21/24 14:01) AGITATION,HEADACHE,GI UPSET ibuprofen [From ADVIL] Adverse Reaction (Intermediate, Verified 09/21/24 14:01) STOMACH UPSET steroids Allergy (Severe, Uncoded 09/21/24 14:01) Aggressive FLONASE Allergy (Intermediate, Uncoded 09/21/24 14:01) intolerance Medication List - Last Reconciled 09/21/24 by Loyda Yuen MD albuterol sulfate 90 mcg/actuation 2 puffs inhalation Q6H PRN amlodipine 5 mg PO DAILY ascorbate calcium (vitamin C) 500 mg PO DAILY azithromycin 250 mg PO 3XW budesonide 0.25 mg (2 mL) inhalation BID 30 days carisoprodol 350 mg PO TID PRN cholecalciferol (vitamin D3) 50 mcg PO DAILY coenzyme Q10 (CoQ-10) 100 mg PO DAILY gabapentin 300 mg PO BID hydrocodone-acetaminophen 7.5-325 mg 1 tab PO QID PRN ipratropium-albuterol 0.5 mg-3 mg(2.5 mg base)/3 mL 3 mL inhalation Q6H 30 days loratadine (Claritin) 10 mg PO DAILY 30 days montelukast 10 mg PO DAILY 30 days nebulizers As directed Oxygen Home Use As directed pravastatin 80 mg PO DAILY trazodone 450 mg (3 x 150 mg) PO BEDTIME Tobacco use date assessed: 09/21/24 Fall risk assessment: No Falls in past year Last assessed Fall Risk: 09/21/24 Dental Screening Dental Screen Date: 08/25/24 HPI HPI Comments History of Present Illness Details - 79-year-old female presenting for fol low-up of her Hypertension . - She has been checking her blood press ure daily, has been stable with amlodipine. - RHas had high blood pressure noted aft er a stressful event. - Chronic pain management of her osteoar thritis and fibromyalgia, currently followed by Dr. Nicole. Takes hydrocodone-acetaminophen 7.5-325 mg 1 tablet twice a day,, and is on gabapentin 300 mg 1 capsule twice a day and carisoprodol 350 mg per tablet taken 1 tablet 3 times a day as needed for episodes of nausea and vomiting - she has been having intermittent episo jessica of Constipation due to hydrocodone; managed with dietary fiber. - has Karlie's thyroiditis with Hypot hyroidism , has a benign thyroid nodule s/p fine-needle aspiration biopsy in the past - has history of lung cancer and COPD pa tient stable with no recent exacerbations. -Has been having intermittent episodes of difficulty initiating and maintaining sleep. Currently taking trazodone 150 mg at bedtime, does not experience any lightheadedness when she wakes up in the morning after taking trazodone the night before [facility] Medical History (Updated 09/21/24 @ 14:10 by Loyda Yuen MD) Essential hypertension Impaired fasting glucose Osteopenia Personal history of nicotine dependence Pulmonary nodule History of lung cancer (~2016) Osteoarthritis of both hips Tubular adenoma of colon Fibromyalgia Chronic insomnia Karlie's thyroiditis COPD (chronic obstructive pulmonary disease) Hyperlipidemia Surgical History History of lung surgery (~09/2017) History of colonoscopy (~02/2014) History of back surgery (~2002) History of left knee surgery Family History Father Bone cancer Mother AAA (abdominal aortic aneurysm) Daughter No problems noted. Son No problems noted. Social History Housing: Other Alcohol intake: former Patient Tobacco Use Status: Former Tobacco user Tobacco use type: Cigarette Cigarette Packs Per Day: 1 Cigarettes Per Day: 20 Years Smoked: 20 e-Cigarette/Vaping Use: Never Used Second Hand Smoke Exposure: No Current occupational status: retired Cognitive needs: No Hearing needs: No Vision needs: Yes Questionnaire PHQ-9 Over the last 2 weeks, how often have you been bothered by any of the following problems? 1. Little interest or pleasure in doing things: not at all 2. Feeling down, depressed, or hopeless: not at all 3. Trouble falling or staying asleep, or sleeping too much: not at all 4. Feeling tired or having little energy: not at all 5. Poor appetite or overeating: not at all 6. Feeling bad about yourself - or that you are a failure or have let yourself or your family down: not at all 7. Trouble concentrating on things, such as reading the newspaper or watching television: not at all 8. Moving or speaking so slowly that other people could have noticed. Or the opposite - being so fidgety or restless that you have been moving around a lot more than usual: not at all 9. Thoughts that you would be better off or of hurting yourself in some way: not at all Total score: 0 Depression Screening Interpretation: Negative Depression Screening Done: Yes Source: Developed by Drs. Steve Garcia, Donna Jacobs, Sulaiman Reynolds and colleagues, with an educational kostas from [employer]. Thrive Questionnaire Date Thrive assessed: 08/25/24 I am a: Patient What is your living situation today?: I have a steady place to live Within the past 12 months, did the food you bought not last and you didn't have the money to get more?: Never true Within the past 12 months, did you worry whether your food would run out before you got money to buy more?: Never true Do you have trouble paying for medicines?: Yes Do you have trouble getting transportation to medical appointments?: No Do you have trouble paying your heating and electricity bill?: No Do you have trouble taking care of your child, family member or friend?: No Do you have trouble with day-to-day activities such as bathing, preparing meals, shopping, managing finances, etc.?: Yes Are you currently unemployed and looking for a job?: No Are you interested in more education?: No Please select the resources that you would like help with: Paying for medicine Currently or been in a relationship where the following occur: No concerns reported THRIVE Score: 0 AUDIT C Alcohol Use Questionnaire (AUDIT-C) 1. How often do you have a drink containing alcohol?: Never Total Score: 0 FELY-7 AMB Questionnaire FELY-7 Date FELY - 7 assessed: 08/25/24 Feeling nervous, anxious, or on edge: 0 = Not at all Not being able to stop or control worryin = Not at all Worrying too much about different things: 0 = Not at all Trouble relaxin = Not at all Being so restless that it is hard to sit still: 0 = Not at all Becoming easily annoyed or irritable: 0 = Not at all Feeling afraid as if something awful might happen: 0 = Not at all Total FELY-7 score (0-4 normal; 5-9 mild; 10-14 moderate; 15-21 severe): 0 Source: Developed by Drs. Steve Garcia, Donna Jacobs, Sulaiman Reynolds and colleagues, with an educational kostas from [employer]. Review of Systems Const Denies frequent falls, Denies headache(s) and Denies weight loss Eyes Reports no additional complaints ENT Denies dizziness and Denies headache(s) Card Denies chest pain, Reports dyspnea and Reports dyspnea on exertion Resp Denies chest congestion, Reports dyspnea, Reports dyspnea on exertion and Reports wheezing GI Reports no additional complaints Reports no additional complaints Musc Denies no additional complaints, Denies abnormal gait and Denies tingling Neuro Denies abnormal gait, Denies behavioral changes, Denies dizziness, Denies frequent falls, Denies headache(s), Denies restless legs, Denies Sensory deficit (Neuro) and Denies tingling Psych Denies no additional complaints and Denies behavioral changes Endo Reports no additional complaints Chris/Lymph Denies easy bleeding and Denies lymphadenopathy Aller/Immun Reports wheezing Physical exam (Primary Care) Vital Signs: Last Vital Signs Pulse 97 09/21/24 13:47 BP 146/80 H 09/21/24 13:47 Pulse Ox 94 09/21/24 13:47 Oxygen Delivery Method Room Air 09/21/24 13:47 BMI result Body Mass Index 29.2 Tobacco/Smoking Status: Tobacco use Status Tobacco use date assessed 09/21/24 09/21/24 13:54 Patient Tobacco Use Status Former Tobacco user 09/21/24 13:54 Tobacco use type Cigarette 09/21/24 13:54 e-Cigarette/Vaping Use Never Used 09/21/24 13:54 PHQ-9: PHQ-9 Score PHQ-9: Total score 0 09/24/24 01:59 Depression Screening Interpretation: Negative Thrive Assessment: Date of Thrive Assessment Date Thrive assessed 08/25/24 09/21/24 13:54 Currently or been in a relationship where the following occur: No concerns reported Const Orientation/consciousness: patient oriented x3 HENMT Head: Yes No palpable skull fracture present and Yes normocephalic Ears: external ears normal, TM's normal bilaterally, TM normal on the left and EAC's normal Mouth: Normal oral and palatal mucosa present, oropharynx normal and moist mucous membranes Throat: Yes posterior oropharynx normal and No postnasal drainage Eyes General: appearance normal, both eyes and all related structures Neck Other: Thyroid gland nonpalpable Neck: Yes full ROM, Yes no lymphadenopathy and Yes supple Resp Effort & Inspection: normal respiratory effort and able to speak in complete sentences Auscultation: diminished lung sounds Cardio Rate: regular rate Rhythm: regular rhythm Heart sounds: S1 normal heart sound present and S2 normal heart sound present GI Palpation (GI): Soft to palpation, nontender, no guarding and no masses Auscultation: normal bowel sounds Skin Lesions: no lesions Rashes: no rashes Neuro General: patient oriented x3, moves all extremities and no focal motor deficits Cranial nerves: Yes CN's II-XII intact bilaterally Sensory Exam: No Sensory deficit (Neuro) Extrem General: Yes full ROM, Yes no joint enlargement, Yes no pedal edema and Yes no calf tenderness Psych Appearance: grossly normal and well kempt Mental Status: mental status grossly normal Speech and movement: Normal speech and movement present Affect: normal affect Attitude: cooperative Thought process: Normal thought process present Coding Level of Care Code Est Pt Level 4 (30774) Complex EM visit Add On G2211 Diagnoses Essential hypertension I10 Chronic insomnia F51.04 Assessment & Plan Assessment & Plan (1) Essential hypertension: Code(s): I10 - Essential (primary) hypertension Category: Medical (2) Chronic insomnia: Code(s): F51.04 - Psychophysiologic insomnia Category: Medical Plan - Continue current hypertension management with amlodipine; encourage regular blood pressure monitoring, cut down salt intake, engage in regular exercise. Prescription sent for blood pressure monitor, with directions given to patient on how to use the monitor, with goal blood pressure less than 130/90. - Refill trazodone prescription for insomnia management. - Pain management: Continue current prescription for gabapentin, soma, and hydrocodone. Address constipation with dietary fiber. - Encourage patient to check with the pharmacy regarding shingles vaccine coverage. - Follow up with Dr. Preciado and Dr. Nicole as scheduled; ensure consistent monitoring of chronic conditions. Medications: New blood pressure test kit-medium check blood pressure once a day 1 ea 0RF I10 - Essential (primary) hypertension Refilled trazodone 450 mg (3 x 150 mg) PO BEDTIME 270 tabs 1RF
== END 2024-09-21 14:23 | disposition home or self-care (01) ==
PROVIDERS: PCP Internal Medicine; Visit Provider Internal Medicine
DX: I10 Essential (primary) hypertension (principal); F51.04 Psychophysiologic insomnia

== ENCOUNTER → 2024-09-21 13:35 | Outpatient (BNVA) | payer MEDICARE, OTHER, SELFPAY | PROVIDERS: PCP Internal Medicine; Visit Provider Internal Medicine | DX: I10 Essential (primary) hypertension (principal); F51.04 Psychophysiologic insomnia | CPT/HCPCS: 99212 ==

== ENCOUNTER 2025-01-02 14:56 | Outpatient (AMB) | payer MEDICARE, SELFPAY ==
--- NOTE | 2025-01-02 15:06 | MHC.OFFVIS ---
Vital Signs 01/02/25 15:08 Height 5 ft 1.5 in Weight 159 lb 13.362 oz BMI 29.7 BP 142/78 H Blood Pressure Location Lt brachial Position Sitting Pulse 93 Pulse Oximetry (%) 90 L Oxygen Delivery Method Nasal Cannula Oxygen Flow Rate 2 Intake Visit Reasons: COPD Allergies aspirin [ASPIRIN] Allergy (Intermediate, Verified 01/02/25 15:14) HEADACHE Neuromuscular Blockers, Steroidal [STEROIDAL NEUROMUSCULAR BLOCKERS] Allergy (Intermediate, Verified 01/02/25 15:14) AGITATION,HEADACHE,GI UPSET ibuprofen [From ADVIL] Adverse Reaction (Intermediate, Verified 01/02/25 15:14) STOMACH UPSET steroids Allergy (Severe, Uncoded 01/02/25 15:14) Aggressive FLONASE Allergy (Intermediate, Uncoded 01/02/25 15:14) intolerance HPI Comments Details: The patient is a 79-year-old woman with a known history of tobacco dependency in the past, COPD and history of lung cancer. She is status post lobectomy several years back with curative intent. Subsequently after that she did follow-up with Oncology. She did have a CT scan of the chest back in 2018 demonstrating stable postsurgical changes on the left-hand side. The patient did have a couple pulmonary nodules. The patient has had a CT scan since then. In addition to that she does have dyspnea on exertion. The patient does use oxygen supplementation usually between 2.5-3 L. She does respond better to the continues oxygen. Recently the family about a portable oxygen concentrator that can provide continuously to flow. Although the battery only lasts about an hour. The patient has not had any pulmonary function studies in a couple years. In regards of her respiratory medications they have been very expensive for her. She typically uses a DuoNeb between 2 to 3 times a day with good effect. At this point I believe this is enough. She does not have any significant wheezing or chest congestion to suggest the need for inhaled cortical steroid therapy at this time. 10/13/2021 the patient is here for pulmonary follow-up visit. Overall the patient has been doing well. She continues using her oxygen with good effect. In addition to that she has continued her respiratory therapy. She did undergo a repeat CT scan of the chest that we personally reviewed together. We were able to compared to the CT scan that she had from 2018. It appears that she has a ground-glass nodular density which is demonstrating interval worsening size when compared to 2018. with a history of lung cancer will be reasonable to further address this nodular density with a PET scan. In addition to that the patient did undergo pulmonary function studies which we personally reviewed demonstrating moderate to severe COPD. The patient does have a severe diffusion impairment which correlates with her oxygen requirements. Based on her decreased DLCO the patient may not be a surgical candidate. We consider bronchoscopy to address this parenchymal abnormality is found to be abnormal on the PET scan. 12/09/2021 the patient is here for a pulmonary follow-up visit. Overall the patient has been doing well. She does continue to have dyspnea on exertion. Pxbj-qw-[id number] severity. The oxygen has been helpful. She cannot afford inhalers per se. However, the nebulizer therapy has been very effective in beneficial. Currently she is on DuoNeb. Will consider budesonide in the future. Right now she is not having any significant productive cough or wheezing so we can hold off on the steroid component. In the meantime we did review her recent PET scan which demonstrated no significant FDG activity in the larger right-sided subsolid nodular density. She does have a history of cancer. Although the PET scan is reassuring she does need to have follow-up CT scan in 6 months. Otherwise patient is without any other complaints. I did encourage her to start pulmonary rehab online. I did give her information in order to do so. Will follow-up in 6 months or sooner if any new issues arise. 06/16/2022 the patient is here for a pulmonary follow-up visit. Overall she is doing well she continues use her nebulized therapy. This has been effective. She does not have any inhalers specially because they have been very expensive for her. We did talk about different alternatives including using a repeat card and also trying generic inhalers that now are available which be lower in [place]. I do believe that she will need at least a rescue inhaler to have with her when she leaves her home. Also, we can consider maintenance inhalers in the near future. We did discuss her last CT scan of the chest done in April 2022 demonstrating stable pulmonary nodules and postsurgical changes after having her lung cancer resected. Will plan to repeat the CT scan 6 months from now which be [address] scan to make sure that those nodular densities are not worse. She continues use oxygen continue sleep. When she is at home with the long cord she sometimes increases it to 3 L because she feels is not enough. 12/14/2022 the patient is here for pulmonary follow-up visit. Overall she is doing well. She is using the nebulized therapy. She is able to expectorate well in the morning. She does feel some heaviness specially when she walks. She does use the oxygen with good effect. She is using conserving device. The patient overall is doing well with the nebulized therapy. She did have a recent CT scan of the chest were personally reviewed and compared to her last CT scan from April 2022. The CT chest has not been officially read, but no significant changes on the GG nodular density. Will plan to repeat CT chest in 1 year if no other findings on her official CT chest read. 06/17/2023 the patient is here for pulmonary follow-up visit. Overall the patient is doing fairly well. She is using her respiratory medication. She is also using her oxygen. Her oxygen requirements have not changed. She also did get the Acapella valve. I did recommend she use it twice a day as good exercise physiology and good mucus clearance. She does not have any significant mucus at this time however. Her last CT scan was back in December 2022. The patient did have a nodular density. She has a history of lung cancer. She will return in 6 months to follow up her repeat CT scan in December 2023. If she has any issues prior to that she is to call the office for an earlier assessment. the patient is wondering about Trelegy inhaler. We did talk about the inhalers and potential cost. She will think about it. In the meantime I will send a prescription if so if she decides to use it she can started once daily. 08/28/2024 the patient is here for a pulmonary follow-up visit. The patient has been having worsening respiratory symptoms. Recently she had an episode of shortness of breath and tachypnea. Ambulance was called to the scene. She was given 3 neb treatments and then she went to the ER and her blood pressure was high with systolic above 200. The patient was given medications in the blood pressure came down. It was felt to be medication related since she was also taking Sudafed. She was subsequently discharged although she did not feel completely well. No evidence of any heart damage the time she did have a chest x-ray which I reviewed demonstrating no acute disease. She also had a recent CT scan of the chest which I also reviewed demonstrating the same abnormal ill-defined density in the right upper lobe area. Very similar to before. Does not appear to be progressing least year to year but when compared to 30/10 seems to be just a little bit worse. Still has not been read yet therefore wait for the final read. The patient now is taking Norvasc and blood pressure is better. She still has some diminished breath sounds some wheezing on exam so therefore will go ahead and optimize her respiratory therapy at this time by adding budesonide b.i.d. continue with the DuoNeb and also will add allergy medicine as well. She will continue using her oxygen. I did advise her to get a pulse oximeter to maintain her oxygen level between 92-97. The patient unfortunately had increased her oxygen when she did not feel good up to 5 L at home which was not a safe thing to do. 01/02/2025 the patient is here for pulmonary follow-up visit. Overall the patient is doing well. She does have some dyspnea on exertion qbsf-nj-fdivfbjn severity and also cough at times productive in nature. Feeling like she is getting more congested. She responded well to the azithromycin in the past therefore we can go ahead and restarted for next 2-3 months. She does use the oxygen with good effect. We did review her last CT scan of the chest that happened back in the fall of 2023 with some evidence of bronchiolitis suggesting an infectious process. Therefore, the azithromycin will be effective in helping her symptoms. She continues using nebulized therapy with good effect. Having some increased allergy symptoms. She does not like to use any nasal sprays. The patient did not respond well to Claritin. [facility]. Patient follow-up in the fall if any issues arise she will call. [facility] Medical History (Updated 09/21/24 @ 14:10 by Loyda Yuen MD) Essential hypertension Impaired fasting glucose Osteopenia Personal history of nicotine dependence Pulmonary nodule History of lung cancer (~2016) Osteoarthritis of both hips Tubular adenoma of colon Fibromyalgia Chronic insomnia Karlie's thyroiditis COPD (chronic obstructive pulmonary disease) Hyperlipidemia Surgical History History of lung surgery (~09/2017) History of colonoscopy (~02/2014) History of back surgery (~2002) History of left knee surgery Family History Father Bone cancer Mother AAA (abdominal aortic aneurysm) Daughter No problems noted. Son No problems noted. Social History Housing: Other Alcohol intake: former Patient Tobacco Use Status: Former Tobacco user Tobacco use type: Cigarette Cigarette Packs Per Day: 1 Cigarettes Per Day: 20 Years Smoked: 20 e-Cigarette/Vaping Use: Never Used Second Hand Smoke Exposure: No Current occupational status: retired Cognitive needs: No Hearing needs: No Vision needs: Yes Review of Systems Const Denies fatigue, Denies frequent falls, Denies headache(s), Denies night sweats and Denies weight loss ENT Denies dizziness and Denies headache(s) Card Denies chest pain, Reports dyspnea and Reports dyspnea on exertion Resp Denies chest congestion, Reports dyspnea, Reports dyspnea on exertion and Reports wheezing GI Reports no additional complaints Reports no additional complaints Musc Denies no additional complaints, Denies abnormal gait and Denies tingling Neuro Denies abnormal gait, Denies behavioral changes, Denies dizziness, Denies frequent falls, Denies headache(s), Denies restless legs, Denies Sensory deficit (Neuro) and Denies tingling Psych Denies no additional complaints and Denies behavioral changes Endo Denies fatigue Chris/Lymph Denies easy bleeding and Denies lymphadenopathy Aller/Immun Reports wheezing Physical Exam Vital Signs: Last Vital Signs Pulse 93 01/02/25 15:08 BP 142/78 H 01/02/25 15:08 Pulse Ox 90 L 01/02/25 15:08 Oxygen Delivery Method Nasal Cannula 01/02/25 15:08 Oxygen Flow Rate 2 01/02/25 15:08 BMI result Body Mass Index 29.7 Const General: alert Neck Neck: Yes normal visual inspection, Yes full ROM and Yes no lymphadenopathy Chest Chest palpation & inspection: normal inspection of the chest Resp Effort & Inspection: prolonged expiratory phase Auscultation: diminished lung sounds Cardio Rate: regular rate Rhythm: regular rhythm Heart sounds: S1 normal heart sound present and S2 normal heart sound present GI Palpation (GI): Soft to palpation and nontender Auscultation: normal bowel sounds Skin General skin exam: rashes and/or lesions noted Neuro Sensory Exam: No Sensory deficit (Neuro) Assessment & Plan Assessment & Plan (1) COPD (chronic obstructive pulmonary disease): Comment: Severe Code(s): J44.9 - Chronic obstructive pulmonary disease, unspecified Category: Medical Qualifiers: COPD type: chronic bronchitis Chronic bronchitis type: simple Qualified Code(s): J41.0 - Simple chronic bronchitis (2) History of lung cancer: Onset Date: ~2016 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) Code(s): Z85.118 - Personal history of other malignant neoplasm of bronchus and lung Category: Medical (3) Pulmonary nodule: Code(s): R91.1 - Solitary pulmonary nodule Category: Medical Plan Continue DuoNeb therapy 4 times a day continue BUdeonide nebs BID STACIA as needed continue oxygen supplementation 2.5-3 L continuous to keep pox 90-97% CPT for acapella valve restart Azithromycin MWF x 8-12 weeks Singulair PM Claritin stopped, trial Zyrtec follow-up in 6 months Medications: New azithromycin Take 1 tablet on Wednesday/Wednesday/Wednesday 250 mg PO 3XW 12 tabs 2RF 28 days K21.9 - Gastro-esophageal reflux disease without esophagitis cetirizine (Zyrtec) 10 mg PO DAILY 30 tabs 6RF 30 days Coding Level of Care Code Est Pt Level 4 (35821) Complex EM visit Add On G2211 Diagnoses Simple chronic bronchitis J41.0 COPD type: chronic bronchitis Chronic bronchitis type: simple History of lung cancer Z85.118 Pulmonary nodule R91.1 Time Spent (min) 17
[2025-01-02 15:08] VITALS: BP 142/78; PULSE 93; O2SAT 90; BMI 29.7
--- OUTSIDE RECORDS SUMMARY | 2025-01-02 18:36 | XMS_ITS | Clinical Summary ---
Author Organization [facility] Address [address] [place] [address] Care Team Providers Care [facility] Name Role Phone Hugo Yang MD Primary Care Provider Unava ilable Surgical History Surgery Date Site/Laterality Comments OTHER SURGICAL HISTORY 09/21/2017 PROCEDURE: PARTIAL LUNG REMOVAL W/WEDGE RESECT; COMMENT: da Gurmeet POWER wedge resection and completion trisegmentectomy COLONOSCOPY 03/01/2014 PROCEDURE: HISTORICAL COLONOSCOPY; COMMENT: 7 tubular adenomas KNEE SURGERY PROCEDURE: HISTORICAL KNEE SURGERY; COMMENT: Fell on brick, debridement BACK SURGERY 1979,1987,1990 PROCEDURE: HISTORICAL BACK SURGERY; COMMENT: Lumbar stimulator (removed except for Lamitrode) Medical History Medical History Date Comments Bipolar disorder, unspecifie d (CMS/[facility]) DX:Bipolar disorder, unspeci fied ([facility]); COMMENT: SEES THERAPISTS/PSYCHIATRISTS History of basal cell carcin jacqueline of skin 04/20/2006 DX:History of basal cell car cinoma of skin; COMMENT: Dr. Cantu (Derm), Dr. Coles (Plastic Surg) IMO update History of malignant melanoma of skin 09/30/2005 DX:History of malignant melanoma of skin; COMMENT: IMO update Chondromalacia of patella 01/22/2010 DX:Cho ndromalacia of patella; COMMENT: Elias Rhodes PA-C IMO update COPD (chronic obstructive pu lmonary disease) (CMS/HCC) 08/27/2010 DX:COPD (chronic obstructive pulmonary disease) ([facility]); COMMENT: Active smoker Family history of breast can cer in sister 12/30/2010 DX:Family history of breast cancer in sister; COMMENT: 2 sisters had breast cancer and two sisters are BRCA positive Myalgia and myositis 09/30/2005 DX:Myalgia and myositis; COMMENT: Dr. Johnson (dispenses Darvocet & Soma) to Dr. Nance Cannot tolerate NSAIDs IMO update Gait disturbance 05/22/2011 DX:Gait disturb ance; COMMENT: Uses cane for occasional sudden weakness in right lower extremity Neck pain 06/24/2011 DX:Neck pain; CO MMENT: Dr. Taylor 04/20- normal MRI of neck 06/21- normal upper extremity EMG Osteoporosis 05/17/2007 DX:Osteoporosis; COMMENT: DEXA 04/16 12/20---osteopenia hip, osteoporois back--fosamax IMO update Thyroid mass 08/28/2011 DX:Thyroid mass; COMMENT: Found on 04/20 MRI 06/21 - fine needle aspiration Enthesopathy of hip region 01/03/2007 DX:En thesopathy of hip region; COMMENT: injections from Dr. Johnson Sciatica 11/12/2005 DX:Sciatica; COM MENT: Dr. Taylor - failed injections, PT, dorsal column stimulator (Dr. 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 with negative hilar and mediastinal LNs Family History Medical History Relation Name Comments Lung cancer Brother 1 Hodgkins, Diabetes Brother 2 brain cancer, c rohns disease Hypertension Father bone cancer Hypertension Mother DM, AAA, other vessel aneurysms Brain cancer Sister 1 Breast cancer Sister 2 Breast cancer Sister 3 Diabetes Uncle maternal Relation Name Status Comments Brother 1 Brother 2 Father Maternal Grandfather Maternal Grandmother Mother Paternal Grandmother Sister 1 Sister 2 Sister 3 Uncle Social History Tobacco Use Types Packs/Day Years Used Date Smoking Tobacco: Former Cigarettes Q uit: 02/08/2010 Smokeless Tobacco: Former Alcohol Use Standard Drinks/Week Comments Yes 0 (1 standard drink = 0.6 oz pur e alcohol) Comments Unknown Sex and Gender Information Value Date Recorded Sex Assigned at Not on file Legal Sex Female 7:19 AM EST Gender Identity Not on file Sexual Orientation Not on file Obstetrics History Plan of Treatment Health Maintenance Due Date Last Done Comments DTaP,Tdap,and Td Vaccines (1 - Tdap) 1965 Zoster Vaccines (1 of 2) 1996 Pneumococcal Vaccine: 50+ Years (2 of 2 - PCV) 08/28/2012 08/28/2011 RSV Immunization Patients 60+ Years Old (1 - 1-dose 75+ series) 2021 COVID-19 Vaccine (1 - season) 2024 Influenza Vaccine (#1) 2024 3, 08/28/2011, 08/08/2010, Additional history exists HIB Vaccines Aged Out No longer eligi ble based on patient's age to complete this topic HPV Vaccines Aged Out No longer eligi ble based on patient's age to complete this topic Hepatitis A Vaccines Aged Out No long er eligible based on patient's age to complete this topic Hepatitis B Vaccines Aged Out No long er eligible based on patient's age to complete this topic IPV Vaccines Aged Out No longer eligi ble based on patient's age to complete this topic MMR Vaccines Aged Out No longer eligi ble based on patient's age to complete this topic Meningococcal ACWY Vaccine Aged Out N o longer eligible based on patient's age to complete this topic Meningococcal B Vacine Aged Out No lo nger eligible based on patient's age to complete this topic RSV Immunization Patients Under 20 months Aged Out No longer eligible based on patient's age to complete this topic Varicella Vaccines Aged Out No longer eligible based on patient's age to complete this topic Care Teams [facility] Relationship Specialty Start Date End Date Hugo Yang MD PCP - General Internal Medicine 02/21/14
== END 2025-01-02 15:36 | disposition home or self-care (01) ==
LOC: HO.HPS 14:57
PROVIDERS: PCP Internal Medicine; Visit Provider Hospitalist
DX: J41.0 Simple chronic bronchitis (principal); Z85.118 Personal history of other malignant neoplasm of bronchus and lung; R91.1 Solitary pulmonary nodule
CPT/HCPCS: 99214; G2211

== ENCOUNTER → 2025-01-02 14:56 | Outpatient (BNVA) | payer MEDICARE, SELFPAY | PROVIDERS: PCP Internal Medicine; Visit Provider Hospitalist | DX: J41.0 Simple chronic bronchitis (principal); R91.1 Solitary pulmonary nodule; Z99.81 Dependence on supplemental oxygen; Z85.118 Personal history of other malignant neoplasm of bronchus and lung; Z87.891 Personal history of nicotine dependence | CPT/HCPCS: 99212 ==

== ENCOUNTER 2025-10-08 16:00 | Emergency (ER) | payer MEDICARE, SELFPAY ==
--- NOTE | ~2025-10-08 | XR_ITS ---
EXAMINATION: XR CHEST CLINICAL INFORMATION: SOB COMPARISON: 08/26/2024. TECHNIQUE: Frontal view of the chest was obtained. FINDINGS: The cardiac, hilar, and mediastinal contours are normal. Elevated left hemidiaphragm, unchanged. Mild linear scarring in the left base, and right midlung, unchanged. Lungs otherwise clear. No pneumothorax or effusion. No focal osseous or soft tissue abnormality. Spinal stimulator device incidentally noted overlying the inferior thoracic spine. XR/XR chest 1V IMPRESSION: 1. No active pulmonary disease. Stable chronic changes, similar to 08/26/2024. Electronically signed by: Rich Marroquin MD 10/08/2025 05:01 PM [facility]
--- NOTE | 2025-10-08 16:07 | ECG_ITS ---
Test Reason : SOB Blood Pressure : */* mmHG Vent. Rate : 93 BPM Atrial Rate : 93 BPM P-R Int : 132 ms QRS Dur : 86 ms QT Int : 360 ms P-R-T Axes : 47 52 33 degrees QTcB Int : 447 ms Normal sinus rhythm Normal ECG When compared with ECG of 26-Aug-2024 16:09, No significant change was found Referred By: Isis Winters Electronically Signed By: JANET GARZA
[2025-10-08 16:23] VITALS: BP 170/59; BP 172/79; PULSE 93; PULSE 95; RESP 20; TEMP 36.7; O2SAT 97; O2SAT 99; BMI 30.6
[2025-10-08 16:27] VITALS: BP 172/79; PULSE 93; RESP 20; TEMP 36.7; O2SAT 97
[2025-10-08 16:45] LABS: MANUAL DIFF FLAG NO
[2025-10-08 16:48] LABS: Hematocrit 38.9 % (37.0-47.0); Hemoglobin 12.5 g/dl (12.0-16.0); Imm Gran Abs Auto 0.06 X10*3/uL (0.00-0.03); Imm Gran Pct Auto 0.5 % (0.0-0.4); Lymphocytes Absolute Auto 1.9 X10*3/uL (1.2-4.9); Mean Corpuscular HGB Conc 32.1 g/dl (31.0-35.0); Mean Corpuscular Hemoglobin 28.2 pg (27.0-33.0); Mean Corpuscular Volume 87.8 fL (80.0-98.0); NRBC Abs Auto 0.000 X10*3/uL (0.0-0.012); NRBC Pct Auto 0.0 /100WBC (0.0-0.2); Platelet Count 265 X10*3/uL (160-400); Red Blood Count 4.43 X10*6/uL (4.20-5.50); White Blood Count 13.3 X10*3/uL (4.8-10.8)
[2025-10-08 16:49] LABS: Venous Blood Gas Refer to POC result
[2025-10-08 16:50] LABS: VBG HCO3 33 mmol/L (22-26); VBG O2 % Saturation 62.0 %
--- NOTE | 2025-10-08 17:00 | ED.GENADULT ---
HPI - General Adult General Chief complaint: General Medical Stated complaint: diff breathing Time Seen by Provider: 10/08/25 16:15 Source: patient, EMS, RN notes reviewed and old records reviewed Mode of arrival: EMS Limitations: no limitations History of Present Illness ED Provider: Polo HPI narrative: 80-year-old female with a past medical history significant for COPD on 4 L O2, lung cancer status post lobectomy, fibromyalgia, hyperlipidemia presents for evaluation of shortness of breath. The patient reports that she has been feeling unwell for the last 3 or 4 days pain She reports increased shortness of breath with cough and green mucus production. She denies any pain, leg swelling. She reports multiple sick contacts Related Data Home Medications ?Medication ?Instructions ?Recorded ?Confirmed carisoprodol 350 mg tablet 350 mg PO TID PRN 04/18/21 05/14/23 ascorbate calcium (vitamin C) 500 500 mg PO DAILY 03/27/22 05/14/23 mg tablet cholecalciferol (vitamin D3) 50 50 mcg PO DAILY 03/27/22 05/14/23 mcg (2,000 unit) capsule coenzyme Q10 100 mg capsule 100 mg PO DAILY 03/27/22 05/14/23 (CoQ-10) hydrocodone 7.5 mg-acetaminophen 1 tab PO QID PRN 06/16/22 05/14/23 325 mg tablet Oxygen Home Use 12/14/22 05/14/23 nebulizers 12/14/22 05/14/23 gabapentin 300 mg capsule 300 mg PO BID 09/21/24 Previous Rx's ?Medication ?Instructions ?Recorded blood pressure test kit-medium #1 ea 09/21/24 trazodone 150 mg tablet 450 mg (3 x 150 mg) PO BEDTIME 12/27/24 #270 tabs azithromycin 250 mg tablet 250 mg PO 3XW 28 days #12 tabs 03/29/25 amlodipine 5 mg tablet 5 mg PO DAILY #30 tabs 08/15/25 pravastatin 80 mg tablet 80 mg PO DAILY #90 tabs 08/20/25 cetirizine 10 mg tablet 10 mg PO DAILY #30 tabs 08/31/25 ipratropium 0.5 mg-albuterol 3 mg 3 ml inhalation Q6H 30 days #180 mL 09/05/25 (2.5 mg base)/3 mL nebulization soln budesonide 0.25 mg/2 mL suspension 0.25 mg (2 mL) inhalation BID 30 09/12/25 for nebulization days #120 mL albuterol sulfate 90 mcg/actuation 2 puff inhalation Q6H PRN 09/14/25 aerosol inhaler shortness of breath or wheezing #8.5 grams montelukast 10 mg tablet 10 mg PO DAILY #30 tabs 09/21/25 azithromycin 250 mg tablet 250 mg PO DAILY 4 days #4 tabs 10/08/25 Allergies Allergy/AdvReac Type Severity Reaction Status Date / Time aspirin (ASPIRIN) Allergy Intermediate HEADACHE Verified 10/08/25 16:25 Neuromuscular Blockers, Allergy Intermediate AGITATION,HEADACHE,GI Verified 10/08/25 16:25 Steroidal (STEROIDAL UPSET NEUROMUSCULAR BLOCKERS) ibuprofen (From ADV[facility]) AdvReac Intermediate STOMACH Verified 10/08/25 16:25 UPSET steroids Allergy Severe Aggressive Uncoded 10/08/25 16:25 FLONASE Allergy Intermediate intolerance Uncoded 10/08/25 16:25 Review of Systems Constitutional: Constitutional: Denies body ache(s), Denies chills, Reports fatigue, Denies fever(s), Denies headache(s) and Reports malaise Eyes: Eyes: Denies blurry vision ENT: Denies headache(s), Denies sore throat and Denies throat swelling Cardiovascular: Cardiovascular: Denies chest pain and Reports dyspnea Respiratory: Respiratory: Reports change in phlegm color, Reports chest congestion, Reports cough, Denies pain on inspiration, Denies pain with cough and Reports dyspnea Gastrointestinal: Gastrointestinal: Denies abdominal pain, Denies nausea and Denies vomiting Musculoskeletal: Musculoskeletal: Denies back pain Integumentary/Breasts: Skin/Breast: Denies rash Neurologic: Denies headache(s) Psychiatric: Psychiatric: Denies anxiety Endocrine: Endocrine: Reports fatigue Allergic/Immunologic: Allergic/Immunologic: Denies throat swelling PMFSH Past Medical History Medical History (Updated 10/08/25 @ 18:21 by Sebastian Cuellar) Essential hypertension Impaired fasting glucose Osteopenia Personal history of nicotine dependence Pulmonary nodule History of lung cancer (~2016) Osteoarthritis of both hips Tubular adenoma of colon Fibromyalgia Chronic insomnia Karlie's thyroiditis COPD (chronic obstructive pulmonary disease) Hyperlipidemia Surgical History History of lung surgery (~09/2017) History of colonoscopy (~02/2014) History of back surgery (~2002) History of left knee surgery Family History Family History Father Bone cancer Mother AAA (abdominal aortic aneurysm) Daughter No problems noted. Son No problems noted. Social History Social History Housing: Other Alcohol intake: former Patient Tobacco Use Status: Former Tobacco user Tobacco use type: Cigarette Cigarette Packs Per Day: 1 Cigarettes Per Day: 20 Years Smoked: 20 Smoked in Last 30 Days: No e-Cigarette/Vaping Use: Never Used Second Hand Smoke Exposure: No Use of substances other than those prescribed or required for medical reasons: No Advance Directives: No Advance Directives Information Provided: No Do you have a plan to hurt others: No Plan Current occupational status: retired Cognitive needs: No Hearing needs: No Vision needs: Yes Physical Exam ED Vital Signs: Vital Signs - 24 hr 10/08/25 16:23 10/08/25 16:27 Temperature 98.1 F 98.1 F Pulse Rate 93 93 Respiratory Rate 20 20 Blood Pressure 172/79 H 172/79 H Pulse Oximetry 97 97 Oxygen Delivery Method Nasal Cannula Nasal Cannula BMI result Body Mass Index 30.6 Const General: comfortable, no acute distress, alert and awake Nutritional Appearance: well nourished Orientation/consciousness: patient oriented x3 HENMT Head: Yes normocephalic and Yes atraumatic Eyes Eyelids: Yes eyelids normal Conjunctivae: conjunctivae normal Sclerae: sclerae normal Corneas: corneas normal Pupils: Equal, round and reactive pupils present EOM: EOMs intact bilaterally Neck Neck: Yes full ROM Resp Other: Diminished breath sounds without adventitious lung sounds. Effort & Inspection: normal respiratory effort, able to speak in complete sentences, no audible wheezes and not labored Auscultation: clear to auscultation bilaterally Cardio Other: No lower extremity edema Rate: regular rate Rhythm: regular rhythm GI Inspection: No distended Palpation (GI): Soft to palpation, not firm, nontender, no guarding and not rigid Skin General skin exam: elasticity normal Neuro General: patient oriented x3 Cranial nerves: Yes Equal, round and reactive pupils present and Yes Bilaterally intact EOM present Cognition (Neuro): normal cognition Extrem Other: Moving all extremities well without any obvious deformities Course Reevaluation(s) Reevaluation #1: Patient's workup largely unremarkable, her vital signs have remained stable. [place] [address]. No evidence of pneumonia on x-ray, viral swabs negative. Given her history of COPD and lung cancer I feel is appropriate to treat her with a course of azithromycin. We will give her her 1st dose in the ER. Steroids were considered but the patient has an adverse reaction with a aggressiveness. She is not wheezing on exam, I do not feel that has absolutely necessary to give steroids especially with her adverse reaction. We will defer at this time. Time: 18:18 Medical Decision Making Medical Decision Making [facility] Narrative: 80-year-old female with a past medical history as above on 4 L of nasal cannula oxygen presents for evaluation of weakness and shortness of breath for the last few days. She reports sick contacts. She is quite well appearing, on exam she is not in any respiratory distress, she is on her baseline oxygen requirement your vital signs are within normal limits. Plan for basic labs, EKG, chest x-ray and viral swabs. Clinical picture is most consistent with a viral illness. Differential Diagnosis Differential Diagnoses: The differential diagnosis associated with the presentation includes COPD exacerbation Bronchitis Influenza COVID-19 Pneumonia Admission/Observation Consideration of admission/observation: Escalation of care including admission/observation considered The patient is considered for admission due to comorbidities but ultimately her vital signs have remained stable with a enlargement reassuring workup. Lab Data [facility] Lab Attestation statement: I reviewed the patient's lab results. The patient has a mild leukocytosis to 13.3. No significant anemia. Normal platelet count. No electrolyte abnormalities warranting dimension. 10/08/25 16:38 10/08/25 16:38 Labs: Lab Results 10/08/25 10/08/25 Range/Units 16:38 16:46 WBC 13.3 H (4.8-10.8) X10*3/uL RBC 4.43 (4.20-5.50) X10*6/uL Hgb 12.5 (12.0-16.0) g/dl Hct 38.9 (37.0-47.0) % MCV 87.8 (80.0-98.0) fL MCH 28.2 (27.0-33.0) pg MCHC 32.1 (31.0-35.0) g/dl RDW 14.3 (11.0-16.0) % Plt Count 265 (160-400) X10*3/uL MPV 9.7 (9.4-12.3) fL Immature Gran % (Auto) 0.5 H (0.0-0.4) % Neut % (Auto) 78.8 H (45-73) % Lymph % (Auto) 14.5 L (20-40) % Tift % (Auto) 4.9 (2-11) % Eos % (Auto) 0.8 (0-4) % Baso % (Auto) 0.5 (0-2) % Lymph # (Auto) 1.9 (1.2-4.9) X10*3/uL Tift # (Auto) 0.7 (0.1-1.2) X10*3/uL Eos # (Auto) 0.1 (0.0-0.4) X10*3/uL Baso # (Auto) 0.1 (0.0-0.2) X10*3/uL Abs Immat Gran (auto) 0.06 H (0.00-0.03) X10*3/uL Absolute Neuts (auto) 10.5 H (2.0-8.3) x10*3/uL Absolute Nucleated RBC 0.000 (0.0-0.012) X10*3/uL Nucleated RBC % (auto) 0.0 (0.0-0.2) /100WBC VBG pH 7.43 (7.32-7.43) VBG pCO2 49 mmHg VBG pO2 36 mmHg VBG HCO3 33 H (22-26) mmol/L VBG O2 Saturation 62.0 % VBG Base Excess 7.9 mmol/L Sodium 143 (135-145) mmol/L Potassium 4.2 (3.3-5.1) mmol/L Chloride 105 (96-108) mmol/L Carbon Dioxide 30 H (22-29) mmol/L Anion Gap 12 (12-20) BUN 10 (9-16) mg/dL Creatinine 0.67 (0.5-1.4) mg/dL Estim Creat Clear Calc 62.3 Estimated GFR > 60 Random Glucose 125 H (60-115) mg/dL Calcium 9.7 (8.4-10.2) mg/dL Magnesium 2.0 (1.6-2.6) mg/dL Total Bilirubin 0.2 (0.0-1.0) mg/dL AST 25 (5-31) U/L ALT 11 (0-31) U/L Alkaline Phosphatase 91 (39-117) U/L Troponin I High Sens < 2.7 D (<3.5-17.0) ng/L NT-Pro-B Natriuret Pep 272.4 (<300) pg/mL Total Protein 7.3 (6.5-8.0) g/dL Albumin 4.6 (3.5-5.0) g/dL Influenza Type A (PCR) NEGATIVE (Negative) Influenza Type B (PCR) NEGATIVE (Negative) RSV RNA Qual (PCR) NEGATIVE (Negative) SARS-CoV-2 RNA (RT-PCR) NEGATIVE (Negative) Independent Interpretation I performed an independent interpretation of an: EKG and Plain X-Ray (No focal infiltrates) Interpretation: Normal sinus rhythm with a rate of [address] changes Radiology Impression Discussion of test interpretation with radiology: I have reviewed the radiologist's reading. Radiologist Impression: FINDINGS: The cardiac, hilar, and mediastinal contours are normal. Elevated left hemidiaphragm, unchanged. Mild linear scarring in the left base, and right midlung, unchanged. Lungs otherwise clear. No pneumothorax or effusion. No focal osseous or soft tissue abnormality. Spinal stimulator device incidentally noted overlying the inferior thoracic spine. XR/XR chest 1V IMPRESSION: 1. No active pulmonary disease. Stable chronic changes, similar to 08/26/2024. Electronically signed by: Rich Marroquin MD 10/08/2025 05:01 PM [facility] Discharge Clinical Impression: URI (upper respiratory infection) COPD (chronic obstructive pulmonary disease) Qualifiers: COPD type: chronic bronchitis Chronic bronchitis type: simple Qualified Code(s): J41.0 - Simple chronic bronchitis Patient Disposition: Home, Self-Care Instructions: Upper Respiratory Infection (ED) Additional Instructions: Your workup in the ER today was very reassuring. Your x-ray did not show any evidence of pneumonia or fluid in the lungs. You tested negative for influenza, COVID-19, and RSV. Given your extensive medical history I feel is appropriate to give you antibiotics for an upper respiratory infection. You were given your 1st dose in the emergency department, continue with the antibiotics once a day for the next 4 days starting tomorrow. Follow up with your primary doctor, return for new or worsening symptoms Prescriptions: New azithromycin 250 mg tablet 250 mg PO DAILY 4 Days Qty: 4 0RF Rx Instructions: start on day 2 of therapy No Action trazodone 150 mg tablet 450 mg PO BEDTIME Qty: 270 1RF azithromycin 250 mg tablet 250 mg PO 3XW 28 Days Qty: 12 2RF Rx Instructions: Take 1 tablet on Wednesday/Wednesday/Wednesday amlodipine 5 mg tablet 5 mg PO DAILY Qty: 30 2RF pravastatin 80 mg tablet 80 mg PO DAILY Qty: 90 0RF cetirizine 10 mg tablet 10 mg PO DAILY Qty: 30 0RF ipratropium-albuterol 0.5 mg-3 mg(2.5 mg base)/3 mL solution for nebulization 3 ml inhalation Q6H 30 Days Qty: 180 6RF budesonide 0.25 mg/2 mL suspension for nebulization 0.25 mg inhalation BID 30 Days Qty: 120 11RF albuterol sulfate 90 mcg/actuation HFA aerosol inhaler 2 puff inhalation Q6H PRN (Reason: shortness of breath or wheezing) Qty: 8.5 9RF montelukast 10 mg tablet 10 mg PO DAILY Qty: 30 0RF carisoprodol 350 mg tablet 350 mg PO TID PRN gabapentin 300 mg capsule 300 mg PO BID cholecalciferol (vitamin D3) 50 mcg (2,000 unit) capsule 50 mcg PO DAILY ascorbate calcium (vitamin C) 500 mg tablet 500 mg PO DAILY coenzyme Q10 [CoQ-10] 100 mg capsule 100 mg PO DAILY hydrocodone-acetaminophen 7.5-325 mg tablet 1 tab PO QID PRN (DME) nebulizers Misc See Rx Instructions .Route Rx Instructions: As directed (DME) Oxygen Home Use Kit See Rx Instructions .Route Rx Instructions: As directed (DME) blood pressure test kit-medium Kit See Rx Instructions .Route Qty: 1 0RF Rx Instructions: check blood pressure once a day Print Language: Chilean
[2025-10-08 17:05] LABS: Alanine Aminotransferase 11 U/L (0-31); Albumin Level 4.6 g/dL (3.5-5.0); Alkaline Phosphatase 91 U/L (39-117); Anion Gap 12 (12-20); Aspartate Amino Transferase 25 U/L (5-31); Blood Urea Nitrogen 10 mg/dL (9-16); Calcium 9.7 mg/dL (8.4-10.2); Carbon Dioxide 30 mmol/L (22-29); Chloride 105 mmol/L (96-108); Creatinine Clr Calc Pharmacy 62.3; Estimated Glomerular Filt Rate > 60; Magnesium 2.0 mg/dL (1.6-2.6); Potassium 4.2 mmol/L (3.3-5.1); Sodium 143 mmol/L (135-145); Total Protein 7.3 g/dL (6.5-8.0)
[2025-10-08 17:09] LABS: NT Pro B Type Natriuretic Pept 272.4 pg/mL (<300)
[2025-10-08 17:14] LABS: Troponin-I High Sensitivity < 2.7 ng/L (<3.5-17.0)
[2025-10-08 17:49] LABS: Resp Syncy Virus RNA Qual PCR NEGATIVE (Negative); SARS COV2 PCR INHOUSE NEGATIVE (Negative)
--- OUTSIDE RECORDS SUMMARY | 2025-10-08 18:03 | XMS_ITS | Clinical Summary ---
Author Organization [facility] Address [address] [place] [address] Care Team Providers Care Acid Leveler Name Role Phone Hugo Yang MD Primary Care Provider Surgical History Surgery Date Site/Laterality Comments OTHER [...] History Date Comments Bipolar disorder, unspecifie d ([facility] V24, [facility] V28) DX:Bipolar disorder, unspec ified ([facility]); COMMENT: SEES THERAPISTS/PSYCHIATRISTS History of basal cell carcin jacqueline of skin 04/20/2006 DX:History of basal cell car cinoma of skin; COMMENT: Dr. Cantu (Derm), Dr. 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 Downs) Sick from Lyrica Patient contends that she cannot sit for [...] Years Used Date Smoking Tobacco: Former Cigarettes 0.5 Q uit: 02/08/2010 Smokeless Tobacco: Former Alcohol Use Standard Drinks/Week Comments Yes 0 (1 standard drink = 0.6 oz pur e alcohol) Comments Unknown Sex and Gender Information Value Date Recorded Sex Assigned at Not on file Legal Sex Female 7:19 AM EST Gender Identity Not on file Sexual Orientation Not on file Plan of Treatment Health Maintenance Due Date Last Done Comments DTaP,Tdap,and Td Vaccines (1 - Tdap) 1965 Zoster Vaccines (1 of 2) 1996 Pneumococcal Vaccine: 50+ Years (2 of 2 - PCV) 08/28/2012 08/28/2011 RSV Immunization Adult Patients (1 - 1-dose 75+ series) 2021 Depression Screening 10/11/2024 COVID-19 Vaccine ( - 2024- season) 2025 Influenza Vaccine (#1) 2025 3, 08/28/2011, 08/08/2010, Additional history exists HIB [...] age to complete this topic Meningococcal B Vaccine Aged Out No l onger eligible based on patient's age to complete this topic RSV Immunization Patients Under 20 months Aged Out No longer eligible based on patient's age to complete this topic Varicella Vaccines Aged Out No longer eligible based on patient's age to complete this topic Care Teams Acid Leveler Relationship Specialty Start Date End Date Hugo Yang MD PCP - General Internal Medicine 02/21/14
[2025-10-08 18:55] VITALS: BP 172/79; PULSE 93; RESP 20; TEMP 36.7; O2SAT 97
== END 2025-10-08 18:56 | disposition home or self-care (01) ==
PROVIDERS: Physician Assistant; Physician Assistant Medical; Emergency Provider Emergency Medicine
DX: J06.9 Acute upper respiratory infection, unspecified (principal); J41.0 Simple chronic bronchitis; R06.02 Shortness of breath; J44.9 Chronic obstructive pulmonary disease, unspecified; Z99.81 Dependence on supplemental oxygen; Z79.899 Other long term (current) drug therapy; Z03.818 Encounter for observation for suspected exposure to other biological agents ruled out
CPT/HCPCS: 36415; 71045; 80053; 82803; 83735; 83880; 84484; 85025; 87637; 93005; 99284

== ENCOUNTER → 2025-10-08 16:07 | Outpatient (BNV) | payer MEDICARE, SELFPAY | PROVIDERS: Emergency Provider Emergency Medicine; Visit Provider Radiology Diagnostic Radiology | DX: R06.02 Shortness of breath (principal) | CPT/HCPCS: 71045 ==

== ENCOUNTER → 2025-10-08 16:07 | Outpatient (BNV) | payer MEDICARE, SELFPAY | PROVIDERS: Emergency Provider Emergency Medicine; Visit Provider Internal Medicine | DX: R06.02 Shortness of breath (principal) | CPT/HCPCS: 93010 ==